=== PATIENT | female | born 1995 | race Caucasian/White ===

== ENCOUNTER → 2020-07-29 11:34 | Outpatient (CLI) | payer OTHER, SELFPAY ==
--- NOTE | ~2020-07-29 | US_ITS ---
EXAMINATION: US OB transvaginal DATE: 07/29/2020 12:04 INDICATION: Gestational dating. TECHNIQUE: Real-time transvaginal obstetric ultrasound. FINDINGS: No prior studies for comparison. The uterus measures 10 x 6.2 x 7.6 cm. There is an intrauterine gestational sac, with pole iden tified. The crown rump length measures 1.64 cm, which correlates with a estimated gestational age of 8 weeks 0 days. heart tones are identified measuring 172 bpm. The left ovary is unremarkable with follicular changes measuring 3.2 x 2.9 x 2.4 cm. IMPRESSION: 1. SL IUP with an EGA of 8 weeks, 0 days (EDC by current ultrasound of 03/10/2021). Reviewed, dictated and finalized at location B. IMPRESSION: 1. SL IUP with an EGA of 8 weeks, 0 days (EDC by current ultrasound of 03/10/20 21).
== END ==
PROVIDERS: Visit Provider Obstetrics & Gynecology
DX: Z36.87 Encounter for antenatal screening for uncertain dates (principal); Z3A.08 8 weeks gestation of pregnancy
CPT/HCPCS: 76817

== ENCOUNTER 2021-01-03 05:59 | Observation (INO) | payer OTHER, SELFPAY ==
--- NOTE | ~2021-01-03 | US_ITS ---
EXAMINATION: US abdomen limited DATE: 01/03/2021 08:22 INDICATION: Right upper quadrant pain TECHNIQUE: Multiple grayscale and Doppler ultrasound images of the abdomen were obtained. COMPARISON: None available FINDINGS: Bowel gas obscures visualization of the pancreas. The visualized portions of the pancreas a re unremarkable. The liver is normal with normal echogenicity and echotexture. No surface nodularity. Normal hepatopetal flow in the main portal vein. Stones are present in the nondistended gallbladder. There is no gallbladder wall thickening or pericholecystic fluid. The normal common bile duct measur es 6 mm. Sonographic Mckenzie sign is positive. IMPRESSION: 1. Cholelithiasis and positive sonographic Mckenzie sign without gallbladder wall thickening or pericho lecystic fluid. Findings are equivocal for acute cholecystitis. Reviewed, dictated and finalized at location B. IMPRESSION: 1. Cholelithiasis and positive sonographic Mckenzie sign without gallbladder wall thickening or pericholecystic fluid. Findings are equivocal for acute cholecys titis.
[2021-01-03 06:37] VITALS: TEMP 36.3
[2021-01-03 06:38] VITALS: BP 129/67; PULSE 73
[2021-01-03 06:46] VITALS: BMI 43.2
--- NOTE | 2021-01-03 06:48 | OBADM ---
This patient, Kelly Bar, admitted to the OB room 115 on 01/03/21 at 0559 for observation due to RUQ pain and nausea. Patient/family oriented to hospital policies and general routines including ID bracelet, bed and alarms, visiting hours, pain management, procedures, bathroom and other care routines, personal items, smoking policy, room service/diet, and visiting hours. Patient/Family are encouraged to report perceived risks to care and to ask questions if they do not understand what they are told or what they should do.
[2021-01-03 07:01] VITALS: BP 130/76; PULSE 83
[2021-01-03 07:31] VITALS: BP 123/63; PULSE 78
--- NOTE | 2021-01-03 07:41 | PC.NURSE ---
Dr. Monahan returned page and informed of pt's pain, history of elevated BP's before 1st , at end of both prior pregnancies, was never on any BP meds, pain that started this am at 0430 with nausea. Informed of reactive tracing, BP's, pt denies headache, visual disturbance and normal reflexes. Pt states she ate at the [employer] last night. Pt had a couple of sips of water around 0530 this am, but nothing before or since. Orders received.
--- NOTE | 2021-01-03 07:49 | PM.OBTRLD ---
OB - Triage/Final Diagnosis Visit Information Comments/Additional reasons for admission: I have assessed the risk for this patient, Kelly Bar, and determined that she would benefit from observation care. Evaluation Vital signs: Vital Signs - 24 hr 01/03/21 06:38 01/03/21 07:01 01/03/21 07:31 Pulse Rate 73 83 78 Blood Pressure 129/67 130/76 123/63 Final Diagnosis (1) RUQ pain: Code(s): R10.11 - Right upper quadrant pain Status: Acute Plan: The patient had sudden onset in the night of RUQ pain and nausea. No headache or visual changes. Good FM. PE: vss abdomen soft, tender RUQ to minimal palpation A/P: IUP 31 1/7 wks RUQ pain-check ultrasound, labs
[2021-01-03 08:02] VITALS: BP 121/65; PULSE 77
[2021-01-03 08:10] LABS: Basophils Percent Auto 0.1 % (0.2-1.2); Eosinophils Percent Auto 0.3 % (0-4.4); Hematocrit 35.4 % (37.0-47.0); Hemoglobin 11.7 g/dL (12.0-15.0); Immature Granulocyte Absolute 0.03 K/mm3 (0.00-0.031); Immature Granulocyte Percent A 0.3 % (0-0.5); Lymphocytes Absolute Auto 1.65 K/mm3 (0.9-3.2); Lymphocytes Percent Auto 19.2 % (18.3-44.2); Mean Corpuscular HGB Conc 33.1 g/dl (32-36); Mean Corpuscular Hemoglobin 28.9 pg (26-34); Mean Corpuscular Volume 87.4 fl (80-100); Mean Platelet Volume 10.2 fl (7.4-10.4); Monocytes Absolute Auto 0.8 K/mm3 (0.1-0.6); Neutrophils Absolute Auto 6.1 K/mm3 (1.3-6.7); Neutrophils Percent Auto 71.1 % (45.5-73.1); Platelet Count Result 218 k/mm3 (150-375); Red Blood Count 4.05 M/mm3 (4.2-5.4); Red Cell Distribution Width 13.4 % (11.5-14.5); White Blood Count 8.6 K/mm3 (4.5-10.0)
[2021-01-03 08:55] LABS: Alanine Aminotransferase 35 U/L (4-35); Albumin Level 3.7 g/dL (3.5-5.1); Alkaline Phosphatase 103 U/L (38-126); Anion Gap 6 mmol/L (8-16); Aspartate Amino Transferase 22 U/L (14-36); Bilirubin,Total 0.3 mg/dL (0.2-1.3); Blood Urea Nitrogen 7 mg/dL (7-17); Calcium 9.5 mg/dL (8.4-10.2); Carbon Dioxide 25 mmol/L (22-30); Chloride 105 mmol/L (98-107); Estimated CRCL calculation 159 ml/min; Estimated Glomerular Filt Rate > 60; Glucose 92 mg/dL (65-110); Potassium 3.6 mmol/L (3.4-5.0); Sodium 136 mmol/L (137-145)
--- NOTE | 2021-01-03 09:22 | PC.NURSE ---
Dr. Monahan returned page and informed of U/S and lab results. Orders for discharge on a low fat diet received.
== END 2021-01-03 10:15 | disposition home or self-care (01) ==
LOC: ANHLDR 01-06 09:16 → ANHOBPP 01-06 09:16
PROVIDERS: Admitting Provider Obstetrics & Gynecology Gynecology; PCP Family Medicine Sports Medicine; Visit Provider Obstetrics & Gynecology Gynecology
DX: O26.893 Other specified pregnancy related conditions, third trimester (principal); R10.11 Right upper quadrant pain; Z3A.31 31 weeks gestation of pregnancy
CPT/HCPCS: 36415; 76705; 80053; 85025; G0378; G0379

== ENCOUNTER 2021-02-06 16:18 | Outpatient (CLI) | payer OTHER, SELFPAY ==
[2021-02-06 17:06] LABS: Partial Thromboplastin Time 23.6 SECONDS (22.3-36.8)
== END 2021-02-06 16:19 | disposition home or self-care (01) ==
PROVIDERS: PCP Family Medicine Sports Medicine; Visit Provider Obstetrics & Gynecology
DX: O99.413 Diseases of the circulatory system complicating pregnancy, third trimester (principal); Z3A.00 Weeks of gestation of pregnancy not specified; Z86.718 Personal history of other venous thrombosis and embolism
CPT/HCPCS: 36415; 85730; 86850; 86900; 86901

== ENCOUNTER 2021-02-10 11:46 | Outpatient (RCR) | payer OTHER, SELFPAY ==
--- NOTE | ~2021-02-10 | US_ITS ---
EXAMINATION: US OB BPP wo non-stress DATE: 02/10/2021 13:36 INDICATION: Nonreactive nonstress test on in office examination TECHNIQUE: Real-time pelvic ultrasound was performed. The interpreting radiologist was not present fo r the study. COMPARISON: None. FINDINGS: There is a single living fetus in vertex presentation. The placenta is anterior. heart rate is 129 beats per minute (bpm). Amniotic fluid volume is subjectively normal. Biophysical profile performed by the technologist: breathing (30 sec sustained breathing in 30 minutes): 2 out of 2 movement (3 gross body movements in 30 minutes): 2 out of 2 tone (one episode of qxisrhz-nuclevssq-pyfpujf limb movement): 2 out of 2 Amniotic fluid pocket (2 cm): 2 out of 2 Total score: 8 out of 8 IMPRESSION: 1. Single living fetus in vertex presentation with heart rate of 129 bpm. 2. Biophysical profile 8 out of 8. Reviewed, dictated and finalized at location A.
[2021-02-10 12:37] VITALS: BP 127/69; PULSE 88
== END 2021-02-10 12:00 | disposition home or self-care (01) ==
LOC: ANHOBOP 11:46
PROVIDERS: PCP Family Medicine Sports Medicine; Visit Provider Obstetrics & Gynecology
DX: O26.893 Other specified pregnancy related conditions, third trimester (principal); R03.0 Elevated blood-pressure reading, without diagnosis of hypertension; Z3A.36 36 weeks gestation of pregnancy
CPT/HCPCS: 59025; 76819

== ENCOUNTER 2021-02-10 14:46 | Outpatient (CLI) | payer OTHER, SELFPAY ==
[2021-02-10 15:54] LABS: Partial Thromboplastin Time 26.2 SECONDS (22.3-36.8)
== END 2021-02-10 14:47 | disposition home or self-care (01) ==
PROVIDERS: PCP Family Medicine Sports Medicine; Visit Provider Obstetrics & Gynecology
DX: Z86.718 Personal history of other venous thrombosis and embolism (principal)
CPT/HCPCS: 36415; 59025; 76819; 85730

== ENCOUNTER 2021-02-21 11:33 | Outpatient (CLI) | payer OTHER, SELFPAY ==
[2021-02-21] VITALS (7 sets, daily range): BP systolic 102–117; BP diastolic 58–71; PULSE 72–93
[2021-02-21 12:12] LABS: Basophils Percent Auto 0.2 % (0.2-1.2); Eosinophils Absolute Auto 0.1 K/mm3 (0-0.3); Eosinophils Percent Auto 0.5 % (0-4.4); Hematocrit 35.4 % (37.0-47.0); Hemoglobin 11.8 g/dL (12.0-15.0); Immature Granulocyte Absolute 0.03 K/mm3 (0.00-0.031); Immature Granulocyte Percent A 0.3 % (0-0.5); Lymphocytes Absolute Auto 2.01 K/mm3 (0.9-3.2); Lymphocytes Percent Auto 20.2 % (18.3-44.2); Mean Corpuscular HGB Conc 33.3 g/dl (32-36); Mean Corpuscular Hemoglobin 28.5 pg (26-34); Mean Corpuscular Volume 85.5 fl (80-100); Mean Platelet Volume 10.8 fl (7.4-10.4); Monocytes Absolute Auto 0.8 K/mm3 (0.1-0.6); Monocytes Percent Auto 8.2 % (2.6-8.5); Neutrophils Percent Auto 70.6 % (45.5-73.1); Platelet Count Result 202 k/mm3 (150-375); Red Blood Count 4.14 M/mm3 (4.2-5.4); Red Cell Distribution Width 14.2 % (11.5-14.5)
[2021-02-21 12:17] LABS: Add Urine Microscopic? YES; Appearance Urine Cloudy (Clear); Bilirubin Urine Negative (Negative); Blood Urine Negative (Negative); Color Urine Yellow (Yellow); Glucose Urine UA Negative (Negative); Ketones Urine Negative (Negative); Leukocyte Esterase Ur Trace LEU/UL (NEGATIVE); Mucus Urine Rare /lpf; Nitrate Urine Negative (Negative); Protein Urine 1+ mg/dL (Negative); Specific Grav Ur 1.019 (1.001-1.035); Squamous Epithelial Cell Urine Many /hpf (Few); Urobilinogen Urine Negative mg/dL (<2.0)
[2021-02-21] MEDS: ACETAMINOPHEN 500 MG TABLET 1000 MG PO (12:22)
[2021-02-21 12:27] LABS: Alanine Aminotransferase 21 U/L (4-35); Albumin Level 3.8 g/dL (3.5-5.1); Alkaline Phosphatase 160 U/L (38-126); Anion Gap 10 mmol/L (8-16); Aspartate Amino Transferase 20 U/L (14-36); Bilirubin,Total 0.6 mg/dL (0.2-1.3); Blood Urea Nitrogen 8 mg/dL (7-17); Calcium 9.6 mg/dL (8.4-10.2); Carbon Dioxide 20 mmol/L (22-30); Chloride 104 mmol/L (98-107); Estimated Glomerular Filt Rate > 60; Glucose 113 mg/dL (65-110); Potassium 3.9 mmol/L (3.4-5.0); Sodium 134 mmol/L (137-145); Uric Acid 6.9 mg/dL (2.5-7.5)
[2021-02-21 12:28] LABS: Creatinine Urine 180.5 mg/dL; Total Protein Urine Random 12 mg/dL; Ur Ttl Prot Creatinine Ratio 0.07 mg/mg (0-0.20)
[2021-02-22 15:32] LABS: Creatinine Urine 81.6 mg/dL
[2021-02-22 16:29] LABS: Creatinine 24 Hour Urine 1.3 gm/24 (0.8-1.8); Total Volume 24 Hour Urine 1700 ml
[2021-02-22 16:30] LABS: Total Volume 24 Hour Urine 1700 ml
[2021-02-22 16:37] LABS: Total Protein Urine 24 Hr 255 mg/24hr (28-141); Total Protein Urine Random 15 mg/dL
== END 2021-02-21 13:15 | disposition home or self-care (01) ==
LOC: ANHOBOP 11:40 → ANHOBPP 11:53
PROVIDERS: PCP Family Medicine Sports Medicine; Visit Provider Obstetrics & Gynecology
DX: O13.9 Gestational [pregnancy-induced] hypertension without significant proteinuria, unspecified trimester (principal); Z3A.00 Weeks of gestation of pregnancy not specified
CPT/HCPCS: 36415; 59025; 80053; 81001; 81050; 82570; 84156; 84550; 85025; 87086; 99199; A9270

== ENCOUNTER 2021-02-24 11:58 | Outpatient (CLI) | payer OTHER, SELFPAY ==
[2021-02-24] VITALS (10 sets, daily range): BP systolic 102–123; BP diastolic 61–80; PULSE 75–98
[2021-02-24 12:37] LABS: Basophils Percent Auto 0.1 % (0.2-1.2); Eosinophils Percent Auto 0.3 % (0-4.4); Hematocrit 36.2 % (37.0-47.0); Hemoglobin 12.1 g/dL (12.0-15.0); Immature Granulocyte Absolute 0.03 K/mm3 (0.00-0.031); Immature Granulocyte Percent A 0.3 % (0-0.5); Lymphocytes Percent Auto 20.1 % (18.3-44.2); Mean Corpuscular HGB Conc 33.4 g/dl (32-36); Mean Corpuscular Hemoglobin 28.3 pg (26-34); Mean Corpuscular Volume 84.8 fl (80-100); Mean Platelet Volume 11.1 fl (7.4-10.4); Monocytes Absolute Auto 0.6 K/mm3 (0.1-0.6); Monocytes Percent Auto 6.8 % (2.6-8.5); Neutrophils Absolute Auto 6.5 K/mm3 (1.3-6.7); Neutrophils Percent Auto 72.4 % (45.5-73.1); Platelet Count Result 196 k/mm3 (150-375); Red Blood Count 4.27 M/mm3 (4.2-5.4); Red Cell Distribution Width 14.4 % (11.5-14.5)
[2021-02-24 12:49] LABS: Alanine Aminotransferase 21 U/L (4-35); Albumin Level 3.9 g/dL (3.5-5.1); Alkaline Phosphatase 172 U/L (38-126); Anion Gap 9 mmol/L (8-16); Aspartate Amino Transferase 20 U/L (14-36); Bilirubin,Total 0.6 mg/dL (0.2-1.3); Blood Urea Nitrogen 8 mg/dL (7-17); Calcium 10.2 mg/dL (8.4-10.2); Carbon Dioxide 20 mmol/L (22-30); Chloride 104 mmol/L (98-107); Estimated Glomerular Filt Rate > 60; Glucose 125 mg/dL (65-110); Potassium 3.9 mmol/L (3.4-5.0); Sodium 133 mmol/L (137-145); Uric Acid 7.5 mg/dL (2.5-7.5)
[2021-02-24 13:00] LABS: Add Urine Microscopic? YES; Appearance Urine Cloudy (Clear); Bacteria Urine Trace /hpf; Bilirubin Urine Negative (Negative); Blood Urine Negative (Negative); Color Urine Yellow (Yellow); Glucose Urine UA Negative (Negative); Ketones Urine Negative (Negative); Leukocyte Esterase Ur 1+ LEU/UL (NEGATIVE); Mucus Urine Rare /lpf; Nitrate Urine Negative (Negative); Protein Urine 1+ mg/dL (Negative); Specific Grav Ur 1.017 (1.001-1.035); Squamous Epithelial Cell Urine Many /hpf (Few); Urobilinogen Urine Negative mg/dL (<2.0)
[2021-02-24 14:01] LABS: Creatinine Urine 117.6 mg/dL; Total Protein Urine Random 14 mg/dL; Ur Ttl Prot Creatinine Ratio 0.12 mg/mg (0-0.20)
--- NOTE | 2021-02-24 14:45 | PM.OBTRLD ---
OB - Triage/Final Diagnosis Visit Information Comments/Additional reasons for admission: I have assessed the risk for this patient, Kelly Bar, and determined that she would benefit from observation care. Evaluation Laboratory results: Laboratory Tests 02/24/21 02/24/21 02/24/21 12:24 12:24 12:24 WBC 9.0 RBC 4.27 Hgb 12.1 Hct 36.2 L MCV 84.8 MCH 28.3 MCHC 33.4 RDW 14.4 Plt Count 196 MPV 11.1 H Immature Gran % (Auto) 0.3 Neut % (Auto) 72.4 Lymph % (Auto) 20.1 [place] % (Auto) 6.8 Eos % (Auto) 0.3 Baso % (Auto) 0.1 L Lymph # (Auto) 1.80 [place] # (Auto) 0.6 Eos # (Auto) 0.0 Baso # (Auto) 0.0 Abs Immat Gran (auto) 0.03 Absolute Neuts (auto) 6.5 Absolute Nucleated RBC 0.0 Nucleated RBC % 0.0 Sodium Potassium Chloride Carbon Dioxide Anion Gap BUN Creatinine Estim Creat Clear Calc Estimated GFR Glucose Uric Acid Calcium Total Bilirubin AST ALT Alkaline Phosphatase Total Protein Albumin Urine Color Yellow Urine Appearance Cloudy H Urine pH 7.0 Ur Specific [place] 1.017 Urine Protein 1+ H Urine Glucose (UA) Negative Urine Ketones Negative Ur Blood (Man) Negative Urine Nitrate Negative Urine Bilirubin Negative Urine Urobilinogen Negative Ur Leukocyte Esterase 1+ H Urine RBC 3-5 H Urine WBC 7-9 H Ur Squamous Epith Cells Many H Urine Bacteria Trace Urine Mucus Rare U Random Total Protein 14 Urine Creatinine 117.6 02/24/21 12:24 WBC RBC Hgb Hct MCV MCH MCHC RDW Plt Count MPV Immature Gran % (Auto) Neut % (Auto) Lymph % (Auto) [place] % (Auto) Eos % (Auto) Baso % (Auto) Lymph # (Auto) [place] # (Auto) Eos # (Auto) Baso # (Auto) Abs Immat Gran (auto) Absolute Neuts (auto) Absolute Nucleated RBC Nucleated RBC % Sodium 133 L Potassium 3.9 Chloride 104 Carbon Dioxide 20 L Anion Gap 9 BUN 8 Creatinine 0.70 Estim Creat Clear Calc Not Reportable Estimated GFR > 60 Glucose 125 H Uric Acid 7.5 Calcium 10.2 Total Bilirubin 0.6 AST 20 ALT 21 Alkaline Phosphatase 172 H Total Protein 7.0 Albumin 3.9 Urine Color Urine Appearance Urine pH Ur Specific [place] Urine Protein Urine Glucose (UA) Urine Ketones Ur Blood (Man) Urine Nitrate Urine Bilirubin Urine Urobilinogen Ur Leukocyte Esterase Urine RBC Urine WBC Ur Squamous Epith Cells Urine Bacteria Urine Mucus U Random Total Protein Urine Creatinine Vital signs: Vital Signs - 24 hr 02/24/21 12:31 02/24/21 12:46 02/24/21 13:01 Pulse Rate 98 80 81 Blood Pressure 110/72 120/63 114/69 02/24/21 13:16 02/24/21 13:31 02/24/21 13:46 Pulse Rate 83 82 79 Blood Pressure 123/70 116/80 114/75 02/24/21 14:01 02/24/21 14:16 02/24/21 14:31 Pulse Rate 79 75 83 Blood Pressure 115/71 105/69 113/74 Final Diagnosis (1) PIH ( induced hypertension): Code(s): O13.9 - Gestational [-induced] hypertension without significant proteinuria, unspecified trimester Status: Acute
== END 2021-02-24 14:40 | disposition home or self-care (01) ==
LOC: ANHOBOP 12:05 → ANHLDR 12:09
PROVIDERS: PCP Family Medicine Sports Medicine; Visit Provider Obstetrics & Gynecology
DX: O13.9 Gestational [pregnancy-induced] hypertension without significant proteinuria, unspecified trimester (principal); Z3A.00 Weeks of gestation of pregnancy not specified
CPT/HCPCS: 36415; 59025; 80053; 81001; 82570; 84156; 84550; 85025; 87086; 99199

== ENCOUNTER 2021-02-27 13:20 | Inpatient (IN) | payer OTHER, SELFPAY ==
[2021-02-27] VITALS (16 sets, daily range): BP systolic 114–132; BP diastolic 61–92; PULSE 75–94; TEMP 36.3–36.9; BMI 43.3
[2021-02-27 15:03] LABS: Basophils Percent Auto 0.2 % (0.2-1.2); Eosinophils Percent Auto 0.3 % (0-4.4); Hematocrit 36.6 % (37.0-47.0); Hemoglobin 12.1 g/dL (12.0-15.0); Immature Granulocyte Absolute 0.04 K/mm3 (0.00-0.031); Immature Granulocyte Percent A 0.4 % (0-0.5); Lymphocytes Percent Auto 19.7 % (18.3-44.2); Mean Corpuscular HGB Conc 33.1 g/dl (32-36); Mean Corpuscular Hemoglobin 28.2 pg (26-34); Mean Corpuscular Volume 85.3 fl (80-100); Mean Platelet Volume 11.2 fl (7.4-10.4); Monocytes Absolute Auto 1.2 K/mm3 (0.1-0.6); Neutrophils Absolute Auto 6.1 K/mm3 (1.3-6.7); Neutrophils Percent Auto 66.4 % (45.5-73.1); Platelet Count Result 195 k/mm3 (150-375); Red Blood Count 4.29 M/mm3 (4.2-5.4); Red Cell Distribution Width 14.3 % (11.5-14.5); White Blood Count 9.1 K/mm3 (4.5-10.0)
[2021-02-27] MEDS: DINOPROSTONE 10 MG VAG INSERT VAGINAL (15:55)
--- NOTE | 2021-02-27 16:37 | LDADM ---
This patient, Kelly Bar, was admitted to Labor/Delivery/Recovery 104 on 02/27/21 at 13:20. Plans for labor, pain management and were discussed with patient. Patient/family oriented to hospital policies and general routines including ID bracelet, bed and alarms, visiting hours, pain management, procedures, bathroom and other care routines, personal items, smoking policy, room service/diet and guest tray routines, infant security routines, and visiting hours. Patient/Family are encouraged to report perceived risks to care and to ask questions if they do not understand what they are told or what they should do. See OBIX for further documentation.
[2021-02-28] VITALS (88 sets, daily range): BP systolic 86–166; BP diastolic 41–105; PULSE 63–130; TEMP 36.1–36.9; O2SAT 96–100
[2021-02-28] MEDS: AMPICILLIN 2 GM/NS 100 ML 2 GM/100 ML BAG IVPB (00:03)
[2021-02-28] MEDS: LACTATED RINGERS 1,000 ML 125 ML IV CONT ×2 (00:04→20:12)
[2021-02-28] MEDS: AMPICILLIN 1 GM/NS 50 ML 1 GM/50 ML BAG IVPB ×5 (04:00→21:00)
[2021-02-28] MEDS: OXYTOCIN 30 UNITS/NS 500 ML 30 UNITS/500 ML BAG IV CONT (04:39)
[2021-02-28 05:51] LABS: Partial Thromboplastin Time 23.7 SECONDS (22.3-36.8)
--- NOTE | 2021-02-28 07:25 | WPDOBADMIT ---
Obstetrics - Admit Note Admission Note: record reviewed. No pertinent additions to the history and/or any subsequent changes in the physical findings that are not consistent with the expected course of the were found. Additions to the history and/or subsequent changes in the physical findings follow. [facility] yesterday afternoon for MIL for oligohydramnios with SHANICE 3.4. Cervadil placed and now on Pitocin. Cervix 2/50/-3 anterior. AROM? no fluid return. FHTs reactive.
[2021-02-28 07:29] LABS: Rapid Plasma Reagin Non-Reactive (NonReactive)
[2021-02-28] MEDS: fentaNYL CITRATE INJ (*CRX) 100 MCG/2 ML VIAL 50 MCG IV PUSH ×2 (13:47→17:30)
[2021-02-28] MEDS: SODIUM CHLORIDE 0.9% IV 1,000 ML 150 ML I-UTERINE (14:55)
[2021-02-28] MEDS: LABETALOL HCL 100 MG TABLET PO (15:38)
[2021-02-28] MEDS: ONDANSETRON INJ 4 MG/2 ML VIAL IV PUSH (17:31)
--- NOTE | 2021-02-28 20:17 | WPDANESEPPF ---
Anes - Initial Pre Proc Eval Procedure: labor epidural Date/Time: 02/28/21 20:17 Surgeon: Jony Zuniga MD Pre Op Diagnosis: labor pain Pre Op Diagnosis: Induction of Labor Patient Data Age: 26 Gender: F Height: 1.68 m Weight: 121.8 kg Last Vital Signs Temp 36.4 C L 02/28/21 18:42 Pulse 91 02/28/21 20:16 BP 131/72 02/28/21 20:16 Pulse Ox 98 02/28/21 20:16 Allergies Allergy/AdvReac Type Severity Reaction Status Date / Time erythromycin base Allergy Severe THROAT Verified 02/06/21 15:30 SWELLING, RASH Home Medications Medication Instructions Recorded Confirmed Type PNV cmb#95-ferrous fumarate-FA 1 tablet PO DAILY 01/03/21 02/27/21 History [] aspirin 81 mg PO HS 01/03/21 02/27/21 History ergocalciferol (vitamin D2) 50,000 unit PO 2XW 01/03/21 02/27/21 History [Vitamin D2] labetalol 100 mg PO BID 01/03/21 02/27/21 History heparin (porcine) 12,000 unit SUBCUT TID 02/21/21 02/27/21 History Laboratory Tests 02/27/21 02/28/21 14:50 05:12 APTT 23.7 SECONDS SECONDS (22.3-36.8) RPR Non-reactive (NonReactive) Patient hx anesthesia problems: none Family hx anesthesia problems: none Results Review: All pre-operative results and documents have been reviewed as part of the pre-operative evaluation. PMFSH Past Medical History Medical History (Updated 02/24/21 @ 14:46 by Jony Zuniga MD) PIH ( induced hypertension) Family History Family History (Updated 02/06/21 @ 15:32 by Vel Rucker RN) Father Hypertension Grandparent Diabetes mellitus Mother Hypertension Diabetes mellitus Sibling Asthma Grandparent Heart disease Social History Social History Smoking status: Never smoker Second hand tobacco smoke exposure: No Substance use: never Spiritual care concerns: No Anes - Eval Final PreProcedure Day of Procedure 02/28/21 20:17 Patient weight: morbidly obese ASA classification: III Anesthetic plan: proceed Anesthesia type and monitoring: regional epidural and standard monitoring Results Review: All pre-operative results and documents have been reviewed as part of the pre-operative evaluation. Informed Consent: The patient's anesthetic plan and its attendant risks and benefits were discussed with the patient/family/POA. Questions were solicited and answers provided to the satisfaction of the patient/family/POA.
--- NOTE | 2021-02-28 23:23 | WPDANESEFPP ---
Anes - Eval Final PreProcedure Day of Procedure 02/28/21 23:23 Patient weight: morbidly obese Heart: regular rate and rhythm Lungs: clear to auscultation and normal air movement Airway: Mallampati scale class II Neurological: alert and oriented Last oral intake: >/= 8 hours ASA classification: III Emergent: no Anesthetic plan: proceed Anesthesia type and monitoring: regional epidural and standard monitoring Other findings: to C/S Results Review: All pre-operative results and documents have been reviewed as part of the pre-operative evaluation. Informed Consent: The patient's anesthetic plan and its attendant risks and benefits were discussed with the patient/family/POA. Questions were solicited and answers provided to the satisfaction of the patient/family/POA.
--- NOTE | 2021-02-28 23:42 | PM.IMHP ---
H&P: HPI History of Present Illness Date/Time: 02/28/21 23:42 Chief Complaint: failure to progress; intolerance of labor Narrative: The patient is a 18-year-old 1 at 39 weeks admitted for medical induction of labor. The patient's has been complicated by chronic hypertension as well as a history deep vein thrombosis and pulmonary embolus. In addition the patient was recently diagnosed with gallstones in December of 2020. She has been followed with Maternal Medicine through [facility] with monthly ultrasounds for growth. Most recently the day of admission the patient had a low amniotic fluid with an amniotic fluid index of 3.4. Patient was admitted for Cervidil which remained for 12hours followed by Pitocin. Artificial rupture membranes revealed clear fluid. Patient had slow progress of labor throughout day. She had random periods of tracing category 2 with late decelerations that resolved with conservative measures. Most recently the patient has remained at 6 to 7 cm and with going up on Pitocin a recurrence of late decelerations that would not resolve. Pitocin was disease continued and the patient recommended to proceed with . Patient agrees to proceed. labs Rh positive rubella immune RPR negative hepatitis-B surface antigen negative HIV negative group B strep positive. Review of Systems Review of Systems: Comfortable with epidural no specific complaints PMFSH Past Medical History Medical History (Updated 02/28/21 @ 23:51 by Mary Monahan MD) Deep vein thrombosis with pulmonary embolism HTN (hypertension) Kidney stone Migraines PIH ( induced hypertension) Surgical History Surgical History (Updated 02/28/21 @ 23:48 by Mary Monahan MD) H/O arthroscopic knee surgery History of tonsillectomy and adenoidectomy Family History Family History (Updated 02/06/21 @ 15:32 by Vel Rucker RN) Father Hypertension Grandparent Diabetes mellitus Mother Hypertension Diabetes mellitus Sibling Asthma Grandparent Heart disease Social History Social History Smoking status: Never smoker Second hand tobacco smoke exposure: No Substance use: never Spiritual care concerns: No Meds Home Medications and Allergies Home Medications Medication Instructions Recorded Confirmed Type PNV cmb#95-ferrous fumarate-FA 1 tablet PO DAILY 01/03/21 02/27/21 History [] aspirin 81 mg PO HS 01/03/21 02/27/21 History ergocalciferol (vitamin D2) 50,000 unit PO 2XW 01/03/21 02/27/21 History [Vitamin D2] labetalol 100 mg PO BID 01/03/21 02/27/21 History heparin (porcine) 12,000 unit SUBCUT TID 02/21/21 02/27/21 History Allergies Allergy/AdvReac Type Severity Reaction Status Date / Time erythromycin base Allergy Severe THROAT Verified 02/06/21 15:30 SWELLING, RASH Vital Signs Vital Signs - 24 hr 02/28/21 00:06 02/28/21 03:56 02/28/21 04:43 Temperature 97 F L Pulse Rate 84 82 Blood Pressure 126/76 128/63 Pulse Oximetry 02/28/21 04:45 02/28/21 05:01 02/28/21 05:31 Temperature 97 F L Pulse Rate 74 82 Blood Pressure 124/70 125/71 Pulse Oximetry 02/28/21 06:01 02/28/21 06:31 02/28/21 07:01 Temperature Pulse Rate 82 80 84 Blood Pressure 117/70 122/73 129/82 Pulse Oximetry 02/28/21 07:09 02/28/21 07:31 02/28/21 08:31 Temperature 97.9 F Pulse Rate 71 76 Blood Pressure 121/85 133/81 Pulse Oximetry 02/28/21 09:01 02/28/21 10:01 02/28/21 10:33 Temperature 98.1 F Pulse Rate 73 95 Blood Pressure 140/72 103/65 Pulse Oximetry 02/28/21 11:00 02/28/21 11:01 02/28/21 11:31 Temperature 98 F Pulse Rate 75 79 Blood Pressure 123/74 137/86 Pulse Oximetry 02/28/21 12:01 02/28/21 12:31 02/28/21 13:00 Temperature 97.9 F Pulse Rate 71 75 Blood Pressure 131/75 133/83 Pulse Oximetry 02/28/21 13:01 02/28/21 13:46 02/28/21 14:0
[2021-02-28] MEDS: ceFAZolin 3 GM/D5W 100 ML 100 ML IVPB (23:45)
--- NOTE | 2021-02-28 23:52 | WPDHPUPDATE1 ---
History and Physical Update Update Date/Time: 02/28/21 23:52 History and Physical has been reviewed, including an updated exam of the patient. There are NO changes in the patient's condition. Risks, benefits, and alternatives have been discussed and questions answered. Patient agrees to proceed with procedure.
[2021-03-01] VITALS (48 sets, daily range): BP systolic 93–165; BP diastolic 42–129; PULSE 71–121; RESP 16–18; TEMP 36.2–37; O2SAT 97–100
--- NOTE | 2021-03-01 00:22 | P.OP_ITS ---
Procedure Note - Detailed Date of Procedure 03/01/21 Pre-op Diagnosis Induction of Labor intrauterine at 39 weeks chronic hypertension history of DVT and pulmonary embolism oligohydramnios failure to progress intolerance of labor Post-op Diagnosis same Procedure Performed primary low transverse section Surgeon Mary Monahan MD Anesthesia epidural Findings male infant in the occiput posterior position with asynclitic head; weighing 6lb 11oz with 8 and 9 Apgars;normal-appearing tubes ovaries and uterus Description of Procedure the patient was taken to the operating room and placed under epidural anesthesia. She was prepped and draped in the dorsal supine position with a leftward tilt. Once anesthesia was deemed adequate a Pfannenstiel skin incision was made in the midline and carried down to the underlying layer of fascia which was nicked in the midline. The incision is extended laterally with Carrillo scissors. [place] is a used to tent the fascia which was dissected off using sharp and blunt dissection. The rectus muscles were in the midline and the peritoneum was tented and entered with Metzenbaum was. The incision is extended with blunt traction. The Aj O retractor is placed. The vesicouterine peritoneum was tented entered with Metzenbaum sent extended laterally. The bladder flap was created digitally. The lower uterine segment was incised in a transverse fashion with the scalpel. The incision is extended with lateral traction. The infant's head was brought up into the incision and delivered while the plant attendant or assistant operator applied fundal pressure. The remainder of the inf ant was delivered and the cord was clamped and cut. The is handed to the waiting nursery nurse. The cord blood and gases were drawn and the placenta removed using manual traction. The uterus was cleared of all clots and debris. The uterine incision was closed using 0 Monocryl in a running locked fashion with same suture to imbricate. One additional hcbhyh-ry-vubcw suture was required in the midline for hemostasis. The gutters are irrigated and the incision again inspected and noted to be hemostatic. The tubes and ovaries are inspected. The retractor is removed and the fascia closed using 0 Vicryl in a running fashion. Subcutaneous tissues are irrigated and made hemostatic using Bovie cautery. The skin incision is closed using 3-0 Vicryl in a subcuticular fashion. [place] flex was placed over the incision. Sponge, needle, and instrument counts are correct per the OR staff. Patient was given Ancef prior to skin incision. Patient was returned to the recovery room in stable condition. Estimated Blood Loss 180 Urine Output 300 Drains Yes ( Calvert catheter) Packing No Pathology yes ( placenta) Complications No immediate complications Condition stable Disposition floor
--- NOTE | 2021-03-01 00:28 | PM.OBDSVD ---
DS: Admitting Diagnosis Discharge Date 02/6121 Admitting Diagnosis intrauterine at 39 weeks with oligohydramnios chronic hypertension history of deep vein thrombosis and pulmonary embolus DS: Discharge Diagnosis Discharge Diagnosis (1) Failure to progress in labor: Code(s): O62.2 - Other uterine inertia Status: Acute (2) intolerance to labor, delivered, current hospitalization: Code(s): O77.9 - Labor and delivery complicated by stress, unspecified Status: Acute (3) 39 weeks gestation of : Code(s): Z3A.39 - 39 weeks gestation of Status: Acute (4) HTN (hypertension): Code(s): I10 - Essential (primary) hypertension Status: Acute (5) Deep vein thrombosis: Code(s): I82.409 - Acute embolism and thrombosis of unspecified deep veins of unspecified lower extremity Status: Acute OB - DS: Summary OB Procedures : NST, PIH Mgmt and Ultrasound OB Procedures Intrapartum: low cervical, transverse OB Procedures: : None Peripartum Data Infant Delivery Method: Section Procedures: Procedures Operation Date: 02/28/21 23:30 <No data on this case meets the specified criteria> complications: none Status at Discharge Functional status at discharge: independent ambulation Overall status at discharge: patient is progressing back to baseline Time Spent with Patient Time attestation: Total time spent providing and/or coordinating discharge services: DS: Data Data Completed and Pending Labs on day of discharge: Labs from last 24 hours 02/28/21 02/27/21 05:12 14:50 APTT 23.7 RPR Non-reactive Discharge Plan Discharge Attending physician on discharge: Jony Zuniga Discharging Clinician: Mary Monahan Anticipated Discharge Date/Time: 03/04/21 07:30 Patient Disposition: Home, Self-Care Activity: may shower, may drive after 2 weeks and pelvic rest Diet: regular Wound Care Instructions: incision open to air Patient Instructions: Antibiotic Form Stand Alone Forms: General Discharge Information Follow-up/Referrals: Jony Zuniga MD [Physician] - 1 Week Discharge Medications: New enoxaparin [Lovenox] 40 mg/0.4 mL syringe 40 mg subcut DAILY Qty: 42 RF: 0 Continued ergocalciferol (vitamin D2) [Vitamin D2] 1,250 mcg (50,000 unit) capsule 50,000 unit PO 2XW RF: 0 labetalol 100 mg tablet 100 mg PO BID RF: 0 PNV cmb#95-ferrous fumarate-FA [] 28 mg iron- 800 mcg Tablet 1 tablet PO DAILY RF: 0 Discontinued aspirin 81 mg Tablet 81 mg PO HS RF: 0 heparin (porcine) 10,000 unit/mL solution 12,000 unit subcut TID RF: 0 Date of admission: 02/27/21 13:20 Primary Care Provider: Shahid,Larry Loya Admitting Provider: Jony Zuniga Attending physician on admission: Jony Zuniga Condition: Stable
[2021-03-01] MEDS: OXYTOCIN 30 UNITS/NS 500 ML 30 UNITS/500 ML BAG 125 UNITS IV CONT (01:51)
--- NOTE | 2021-03-01 03:02 | OBPPTRN ---
Patient transferred to post room #286 via stretcher. Support person present. Oriented to unit, room, information board, rooming in, admission packet and security measures. Patient verbalizes understanding.
[2021-03-01] MEDS: HYDROcodone/acetaminophen (*CRX) 5-325 MG TABLET 1 TAB PO ×5 (03:27→22:34)
[2021-03-01] MEDS: DEXTROSE 5%/0.45% SOD CHL 1,000 ML 125 ML IV CONT (07:10)
[2021-03-01] MEDS: MULTIVIT/MIN/PREN/FOL AC/IRON TABLET 1 TAB PO (08:30)
[2021-03-01] MEDS: DOCUSATE SODIUM 100 MG CAPSULE PO ×2 (08:31→17:08)
[2021-03-01] MEDS: IBUPROFEN 600 MG TABLET PO ×3 (08:33→22:33)
--- NOTE | 2021-03-01 08:53 | WPDANLDNPN2 ---
Anes-Prog Note L&D-Neuraxial Date/Time: 03/01/21 08:53 Neuraxial medications: epidural PF morphine Opiod-related complaints: pruritis (moderate. order entered for loratadine) Patient feedback: Patient satisfied with post-operative pain management.
--- NOTE | 2021-03-01 08:54 | WPDANLDPN2 ---
Anes-Prog Note L&D Date/Time: 03/01/21 08:54 Comfortable throughout: labor and section Neuraxial method: epidural Epidural/Spinal procedure site: clean & non-tender Neuro status: Neuro function grossly intact. Cardiovascular status: normal Respiratory status: normal Airway patency: baseline Mental status: baseline Post-Op hydration status: normal Vital Signs: Last Vital Signs Temp 98.6 F 03/01/21 03:10 Pulse 75 03/01/21 03:10 Resp 16 03/01/21 03:10 BP 107/51 L 03/01/21 03:10 Pulse Ox 99 03/01/21 03:10 Pain score (VAS): 0 I/O: Intake & Output 02/28/21 03/01/21 03/01/21 23:59 07:59 15:59 Intake Total 100 Output Total 553 Balance 100 -553 Post-procedural complaints: pruritis Patient feedback: Patient satisfied with anesthetic care.
--- NOTE | 2021-03-01 09:15 | PC.NURSE ---
Mother called out for assist with feeding. Mother reports infant is sleepy and using a nipple shield for most feedings since . Once mother was able to latch infant without shield. is able to flange both lips, he keeps tongue up to palate and sucking on tongue. Skin is intact on both nipples, slight redness noted. Discussed nipple shield use and how shield may assist with latch with keeping tongue down and maintaining latch. Reviewed nipple shield precautions and possible complications. Instructions given on application and cleaning of shield. Patient able to return demonstration on proper application of shield. Discussed the need to initiate pumping if continues to nurse with the shield. Patient verbalizes understanding. Nipple care reviewed of lanolin after feedings, warm compresses as needed. Reviewed infant feeding cues, frequencies, duration of feedings, feeding elimination flow sheet, and signs of adequate intake. Demonstrated stimulation techniques to wake for feeding. Assisted with infant to breast. Reviewed positioning/alignment in cross cradle, holding breast in ?U? hold and guided asymmetrical latch on. Reviewed rational for each. With shield in place infant was able to latch after several attempts. nursed eagerly, with steady draws for short burst and would release nipple then noted sucking his tongue with nipple under tongue. Several times infant latched repeating short bursts and releasing latch. Within a few minutes infant fell asleep at breast. stimulated to wake with to return to breast with same results. Discussed the difference of effective vs ineffective feeding. Reviewed infant is latching with good burst of suckling, he is not feeding consistently with adequate milk transfer at this time and continues to need to be supplement after . Reviewed next feeding if infant is not effectively feeding, mother should initiate pumping and Instructed mother to call out for RN assistance if she is unable to latch for feeding or she has discomfort with nursing. Instructed feeding should be initiated three hours from start of last feeding or if feeding cues are noted before. Mother voiced understanding of information shared.
[2021-03-01] MEDS: LORATADINE 10 MG TABLET PO (10:24)
[2021-03-01] MEDS: ENOXAPARIN 40 MG/0.4 ML SYRINGE SUB-Q ×2 (10:24→22:34)
--- NOTE | 2021-03-01 12:45 | PC.NURSE ---
Mother called out for assist with feeding. Mother in bedside chair with better positioning/alignment. Mother reports infant is sleepy and unable to wake. Demonstrated stimulation techniques to wake. Assisted with to breast using nipple shield. Reviewed positioning/alignment in cross cradle, holding breast in ?U? hold and guided asymmetrical latch on. Reviewed rational for each. With shield in place was able to latch after several attempts. nursed sleepily with minimal effort to suckle. Attempt for 20 minutes, switching to other breast at 15 minutes. A few bursts of of draws noted. stimulated to wake with to return to breast with same results. Discussed the difference of effective vs ineffective feeding. Reviewed infant is latching with good burst of suckling, he is not feeding consistently with adequate milk transfer at this time and may need to be supplement after . Feeding options discussed, Feeding Plan is for mother to put infant to breast each feeding for up to 15 minutes, then pace feed supplement 20 mls and pump for 10-15 minutes. Parents are comfortable with supplementation and pumping. If begins to nurse effectively with long draws and frequent swallowing noted, infant may decrease supplementation and discontinue pumping. Suggested mother have LC cigar making machine supervisor observe feeding before discontinuing supplementation. Discussed increasing supplementation as requires to satisfactions. Reviewed paced feeding and suggested to stop when infant is satisfied, as long as is having required output. With increased supplementation may not want to feed for 4 hours. Mother will continue to pump on infant feeding schedule and will increase session to 20 minutes if pumping every 4 hours. Instructed mother to call out for RN assistance if she is unable to latch for feeding or she has discomfort with nursing. Instructed feeding should be initiated three hours from start of last feeding or if feeding cues are noted before. Mother voiced understanding of information shared. Assisted FOB with paced feeding.
[2021-03-01] MEDS: LANOLIN (LANSINOH) 7.5 GM CREAM 1 APPLIC TOPICAL (12:55)
--- NOTE | 2021-03-01 13:30 | PC.NURSE ---
Breast pump provided due to ineffective feeding. Instructions given on breast pump care and usage, pumping schedule, nipple care, and collection and storage of breast milk. Encouraged [id number], breast massage and manual expression to stimulate supply. Assessed patient for correct flange size, placement and draw. Patient verbalizes and demonstrates understanding of instructions.
[2021-03-02] MEDS: IBUPROFEN 600 MG TABLET PO ×3 (05:37→17:00)
[2021-03-02] MEDS: HYDROcodone/acetaminophen (*CRX) 5-325 MG TABLET 1 TAB PO ×3 (05:37→17:00)
[2021-03-02] MEDS: SIMETHICONE 80 MG TAB.CHEW PO ×3 (05:45→21:46)
[2021-03-02 06:20] LABS: Basophils Percent Auto 0.3 % (0.2-1.2); Eosinophils Absolute Auto 0.1 K/mm3 (0-0.3); Eosinophils Percent Auto 0.6 % (0-4.4); Hematocrit 35.2 % (37.0-47.0); Hemoglobin 10.4 g/dL (12.0-15.0); Immature Granulocyte Absolute 0.04 K/mm3 (0.00-0.031); Immature Granulocyte Percent A 0.4 % (0-0.5); Lymphocytes Absolute Auto 1.34 K/mm3 (0.9-3.2); Lymphocytes Percent Auto 14.3 % (18.3-44.2); Mean Corpuscular HGB Conc 29.5 g/dl (32-36); Mean Corpuscular Hemoglobin 28.3 pg (26-34); Mean Corpuscular Volume 95.9 fl (80-100); Mean Platelet Volume 11.1 fl (7.4-10.4); Monocytes Absolute Auto 0.9 K/mm3 (0.1-0.6); Monocytes Percent Auto 9.3 % (2.6-8.5); Neutrophils Percent Auto 75.1 % (45.5-73.1); Platelet Count Result 144 k/mm3 (150-375); Red Blood Count 3.67 M/mm3 (4.2-5.4); Red Cell Distribution Width 14.7 % (11.5-14.5); White Blood Count 9.3 K/mm3 (4.5-10.0)
--- NOTE | 2021-03-02 07:43 | PM.OBPNVD ---
OB - PN: Subj Subjective Date/time seen: 03/02/21 07:43 Patient comments: no complaints and pain well controlled baby status: doing well OB - PN: Obj Data Labs CBC & Chem 7: 02/27/21 14:50 OB - PN A/P Assessment and Plan (1) HTN (hypertension): Code(s): I10 - Essential (primary) hypertension Status: Acute Assessment and Plan: BP's low so will continue to hold labetalol (2) Deep vein thrombosis: Code(s): I82.409 - Acute embolism and thrombosis of unspecified deep veins of unspecified lower extremity Status: Acute Assessment and Plan: On Lovenox 40 mg daily throughout so will continue with daily not BID Plan day: 1 Plan: routine care Time Spent With Patient Time: Total time spent is greater than 50% in coordination of care (as documented) at patient's floor/unit and/or counseling patient: Exam Narrative: inc c/d/i : Bimanual exam- vagina & uterus: other (Uterus firm, nt @U)
--- NOTE | 2021-03-02 08:15 | PC.NURSE ---
Consult with pt., mother reports she is very tired and continues to have difficulties with latching and maintaining latch. Mother uses the shield for all attempts, reporting infant will latch with little suckling noted. Parents have bottle fed a few times during the night to rest. Mother states she will bottle feed this feeding due to circumcision and she will shower. Suggested mother pump on feeding schedule of every 3-4 hours, increasing pumping to 20 minutes if every four hours. Parents have increased supplementation to 30mls to satisfy . Mother reports she is pumping without difficulties or discomfort and now pumping .5-1mls per session. Nipple care reviewed of lanolin after feedings, warm compresses as needed. Instructed mother to call out for RN assistance if she is unable to latch for feeding or she has discomfort with nursing. Instructed feeding should be initiated 3-4 hours from start of last feeding or if feeding cues are noted before. Mother voiced understanding of information shared.
[2021-03-02 08:20] VITALS: BP 119/45; PULSE 90; RESP 18; TEMP 36.4; O2SAT 99
[2021-03-02 10:25] VITALS: PULSE 90
[2021-03-02] MEDS: MULTIVIT/MIN/PREN/FOL AC/IRON TABLET 1 TAB PO (10:47)
[2021-03-02] MEDS: DOCUSATE SODIUM 100 MG CAPSULE PO ×2 (10:47→17:00)
[2021-03-02 12:00] VITALS: BP 103/59; PULSE 90; RESP 18; TEMP 36.1; O2SAT 97
[2021-03-02 17:02] VITALS: PULSE 75
--- NOTE | 2021-03-02 17:30 | PC.NURSE ---
Erythema noted approximately 1 inch above old IV site on lt. forearm. Area feels warm to the touch. Ice pack placed to area and borders of erythema marked with ink pen. Encouraged pt to notify RN if any changes are noted. Will continue to monitor.
--- NOTE | 2021-03-02 17:50 | PC.NURSE ---
1700 dose of labetalol held d/t BP of 130/67 per MD orders.
[2021-03-02 17:51] VITALS: BP 130/67; PULSE 75; RESP 18
[2021-03-02 19:15] VITALS: BP 120/61; PULSE 90; RESP 18; TEMP 36.5; O2SAT 100
[2021-03-02] MEDS: ENOXAPARIN 40 MG/0.4 ML SYRINGE SUB-Q (21:41)
[2021-03-02] MEDS: HYDROcodone/acetaminophen (*CRX) 10-325 MG TABLET 1 TAB PO (21:45)
[2021-03-03] MEDS: HYDROcodone/acetaminophen (*CRX) 10-325 MG TABLET 1 TAB PO ×4 (02:59→21:20)
--- NOTE | 2021-03-03 09:00 | PC.NURSE ---
Consult with pt., mother reports infant to nursery during the night so she could rest, mother did not pump during the night. Mother will begin regular pumping during the day after all feeding attempts. Mother states she is very tired and will bottle feed if is not eagerly latching. Mother has her pump from home. Requested mother call out next feeding to assist with pump use.
[2021-03-03 09:15] VITALS: BP 124/68; PULSE 102; RESP 20; TEMP 36.8; O2SAT 100
[2021-03-03] MEDS: DOCUSATE SODIUM 100 MG CAPSULE PO ×2 (09:29→17:10)
[2021-03-03] MEDS: IBUPROFEN 600 MG TABLET PO ×2 (09:29→17:11)
[2021-03-03] MEDS: MULTIVIT/MIN/PREN/FOL AC/IRON TABLET 1 TAB PO (09:29)
[2021-03-03 09:33] VITALS: PULSE 102
[2021-03-03 17:30] VITALS: BP 103/55; PULSE 85; RESP 18
[2021-03-03 19:34] VITALS: BP 102/59; PULSE 94; RESP 18; TEMP 36.6; O2SAT 97
[2021-03-03] MEDS: ENOXAPARIN 40 MG/0.4 ML SYRINGE SUB-Q (21:19)
[2021-03-04 08:00] VITALS: PULSE 87; RESP 16; O2SAT 97
[2021-03-04] MEDS: DOCUSATE SODIUM 100 MG CAPSULE PO (08:38)
[2021-03-04] MEDS: HYDROcodone/acetaminophen (*CRX) 5-325 MG TABLET 1 TAB PO (08:38)
[2021-03-04] MEDS: MULTIVIT/MIN/PREN/FOL AC/IRON TABLET 1 TAB PO (08:38)
[2021-03-04 08:42] VITALS: BP 113/72; PULSE 87; RESP 16; TEMP 37.1; O2SAT 97
[2021-03-04 09:00] VITALS: PULSE 87
--- NOTE | 2021-03-04 11:14 | PM.OBPNVD ---
OB - PN: Subj Subjective Date/time seen: 03/04/21 11:14 Patient comments: no complaints and pain well controlled baby status: doing well OB - PN: Obj Data Labs CBC & Chem 7: 03/02/21 05:49 OB - PN A/P Assessment and Plan (1) Deep vein thrombosis: Code(s): I82.409 - Acute embolism and thrombosis of unspecified deep veins of unspecified lower extremity Status: Acute Assessment and Plan: lovenox x 6 wks pp (2) PIH ( induced hypertension): Code(s): O13.9 - Gestational [-induced] hypertension without significant proteinuria, unspecified trimester Status: Acute Assessment and Plan: BP check 1 wk (3) intolerance to labor, delivered, current hospitalization: Code(s): O77.9 - Labor and delivery complicated by stress, unspecified Status: Acute Plan day: 3 Plan: routine care and discharge home Time Spent With Patient Time: Total time spent is greater than 50% in coordination of care (as documented) at patient's floor/unit and/or counseling patient: Exam Narrative: inc c/d/i : Bimanual exam- vagina & uterus: other (Uterus firm, nt @U)
--- NOTE | 2021-03-04 14:45 | PC.NURSE ---
Patient viewed the discharge video Mother & Baby Care, The First Two Weeks . Patient was given the opportunity and encouraged to ask questions. Patient verbalized understanding of information shared and has been given the mother/baby guide for home reference.
[2021-03-06 09:34] VITALS: BP 131/73; PULSE 81; RESP 18; TEMP 36.8; O2SAT 100
== END 2021-03-04 15:35 | disposition home or self-care (01) | DRG 788 ==
LOC: ANHLDR 03-01 00:30 → ANHOB2 03-01 13:08 → ANHLDR 03-06 13:21 → ANHOB2 03-06 13:21
PROVIDERS: Admitting Provider Obstetrics & Gynecology; PCP Family Medicine Sports Medicine; Visit Provider Obstetrics & Gynecology Gynecology
PROC: 10907ZC Drainage of Amniotic Fluid, Therapeutic from Products of Conception, Via Natural or Artificial Opening (ICD-10-PCS; CPT 59514; principal; 2021-02-28 23:30)
DX: O41.03X0 Oligohydramnios, third trimester, not applicable or unspecified (principal); Z37.0 Single live birth; Z3A.39 39 weeks gestation of pregnancy; O99.824 Streptococcus B carrier state complicating childbirth; O13.4 Gestational [pregnancy-induced] hypertension without significant proteinuria, complicating childbirth; O36.8330 Maternal care for abnormalities of the fetal heart rate or rhythm, third trimester, not applicable or unspecified; O62.2 Other uterine inertia; O99.73 Diseases of the skin and subcutaneous tissue complicating the puerperium; L29.9 Pruritus, unspecified; O99.62 Diseases of the digestive system complicating childbirth; K80.80 Other cholelithiasis without obstruction; Z86.718 Personal history of other venous thrombosis and embolism; Z86.711 Personal history of pulmonary embolism
CPT/HCPCS: 36415; 59025; 80053; 81001; 82570; 84112; 84156; 84550; 85025; 85730; 86592; 86850; 86900; 86901; 87086; 88307; 99199; A9270; J0290; J0690; J1650; J1885; J2274; J2405; J2590; J2795; J3010; J7030; J7120

== ENCOUNTER 2021-03-10 12:41 | Outpatient (CLI) | payer OTHER, SELFPAY ==
--- NOTE | ~2021-03-10 | US_ITS ---
EXAMINATION: US venous doppler [facility] DATE: 03/10/2021 13:24 INDICATION: Left lower limb pain. TECHNIQUE: Grayscale ultrasound images without and with compression and Doppler ultrasound images of the left lower extremity veins were obtained. COMPARISON: Ultrasound 03/11/2015 FINDINGS: The visualized portions of left common femoral vein, profunda (deep) femoral vein, femoral vein, popl iteal vein, peroneal veins, posterior tibial veins, and greater saphenous vein outflow are patent. IMPRESSION: 1. No deep venous thrombosis. Reviewed, dictated and finalized at location A. ING AID SPECIALIST
== END 2021-03-10 12:42 | disposition home or self-care (01) ==
LOC: ANHIMG 12:45
PROVIDERS: PCP Family Medicine Sports Medicine; Visit Provider Obstetrics & Gynecology Gynecology
DX: M79.662 Pain in left lower leg (principal)
CPT/HCPCS: 93971

== ENCOUNTER → 2021-08-05 00:19 | Outpatient (CLI) | payer OTHER, SELFPAY ==
[2021-08-05 11:17] LABS: SARS-CoV-2 RNA PCR Negative
== END ==
PROVIDERS: PCP Family Medicine Sports Medicine; Visit Provider Surgery
DX: Z01.812 Encounter for preprocedural laboratory examination (principal); Z20.822 Contact with and (suspected) exposure to COVID-19
CPT/HCPCS: C9803; U0003; U0005

== ENCOUNTER 2021-08-05 08:41 | Outpatient (CLI) | payer OTHER, SELFPAY ==
[2021-08-05 10:08] LABS: Hematocrit 38.7 % (37.0-47.0); Hemoglobin 12.3 g/dL (12.0-15.0)
[2021-08-05 10:24] LABS: Alanine Aminotransferase 18 U/L (4-35); Albumin Level 4.2 g/dL (3.5-5.1); Alkaline Phosphatase 80 U/L (38-126); Amylase 56 U/L (30-110); Aspartate Amino Transferase 28 U/L (14-36); Bilirubin,Total 1.1 mg/dL (0.2-1.3); Lipase 72 U/L (23-300)
== END 2021-08-05 08:42 | disposition home or self-care (01) ==
PROVIDERS: PCP Family Medicine Sports Medicine; Referring Provider Anesthesiology; Visit Provider Surgery
DX: Z01.818 Encounter for other preprocedural examination (principal); K80.20 Calculus of gallbladder without cholecystitis without obstruction; D64.9 Anemia, unspecified
CPT/HCPCS: 36415; 80076; 82150; 83690; 85014; 85018; 86850; 86900; 86901

== ENCOUNTER 2021-08-09 00:47 | Day surgery (SDC) | payer OTHER, SELFPAY ==
[2021-08-04 12:03] VITALS: BMI 42.9
--- NOTE | 2021-08-04 12:15 | PC.NURSE ---
Report to the Outpatient Waiting Room, entrance under the green pavilion located off [facility], at time 8:30 on date 08/09/21. OR Time: 10:30. - You and your visitor will be asked a series of questions to screen for COVID 19 for your protection. - A mask is required within the hospital. One visitor will be allowed to accompany the patient into the hospital. Patients visitor will be instructed to remain with patient at all times or leave the building. We will allow the visitor to come back to the postoperative area when patient is ready. Preoperative COVID Testing Requirements: COVID TEST 08/05 AT 8:45 No COVID Test needed if: (proof is required; if not received patient will have Rapid Test prior to entry) - Patient has received COVID Vaccine at least 14 days prior to procedure date or - Patient has positive COVID test result within last 90 days of surgery date. COVID Test needed if above criteria is not met If not COVID vaccinated a COVID test must be conducted within 72 hours of surgery and patient is asked to isolate self from time of testing until procedure. You will go to the [facility] for your COVID testing. The [facility] is located at the corner of [address] [facility]. You will only be called if COVID results are positive and your surgeon may reschedule your elective surgery date. Patients may have clear liquids (water, carbonated beverages, clear teas, apple juice) until 3 hours prior to surgery (7:30) with a maximum of 20 ounces. - No food from midnight until time of surgery Take the following medications with a SIP of water the morning of surgery: NONE Medications to discontinue per physician: VITAMINS/SUPPLEMENTS Date to take last dose: 08/05/21 Please no make-up, nail tajik, hairspray, perfume, deodorant, or body powder the day of surgery. No jewelry (including any body piercings) or valuables the day of surgery, leave them at home. Please take a shower or bath the night before, or the morning of, surgery with an antibacterial soap. Wear comfortable, loose fitting clothing. HIBICLENS SHOWER - Jewelry must be removed prior to entering the operating room. Rings and piercings that are not removed may be cut off. - The hospital will not accept responsibility for valuables. - Please leave all valuables, including medications, at home the day of surgery. If you are going home after surgery, a licensed otr driver must drive you home. - NO public transportation without another adult. - We recommend that an adult stay with you for 24 hours following discharge. - We also recommend that you do not drive, make important decision, drink alcoholic beverages, or take any drugs that were not prescribed by your health care provider for at least 24 hours after your discharge time. Follow any additional instructions given to you from your surgeon. Telephone instructions given to ANN ALEXIS and asked if any additional questions and then verbalized understanding. Patient advised to call surgeon office or pre surgery nurse liaison [phone] if any additional questions.
[2021-08-09] VITALS (8 sets, daily range): BP systolic 110–146; BP diastolic 69–88; PULSE 51–73; RESP 10–20; TEMP 36.2–37.1; O2SAT 93–100; BMI 41.8
--- NOTE | 2021-08-09 08:57 | WPDANESEPPF ---
Anes - Initial Pre Proc Eval Procedure: Operation Date: 08/09/21 10:30 Proposed Procedures p Laparoscopic Cholecystectomy, Possible Open - Jin Rodríguez DO Date/Time: 08/09/21 08:57 Surgeon: Jin Rodríguez DO Pre Op Diagnosis: symptomatic cholelithiasis Patient Data Age: 26 Gender: F Height: 1.68 m Weight: 117.7 kg Allergies Allergy/AdvReac Type Severity Reaction Status Date / Time erythromycin base Allergy Severe THROAT Verified 08/09/21 08:59 SWELLING, RASH sulfamethoxazole AdvReac Intermediate rash Verified 08/09/21 08:59 [From Bactrim] trimethoprim [From Bactrim] AdvReac Intermediate rash Verified 08/09/21 08:59 Home Medications Medication Instructions Recorded Confirmed Type ergocalciferol (vitamin D2) 50,000 unit PO 2XW 30 Days cap 03/04/21 08/04/21 Rx [Vitamin D2] escitalopram oxalate 20 mg tablet 20 mg PO HS 08/02/21 08/04/21 History vitamin B complex 1 tablet PO DAILY 08/02/21 08/04/21 History calcium carbonate 200 mg calcium 200 mg PO BID PRN 08/04/21 08/04/21 History (500 mg) chewable tablet ferrous sulfate [Iron (ferrous 325 mg PO DAILY 08/04/21 08/04/21 History sulfate)] multivitamin 1 tablet PO DAILY 08/04/21 08/04/21 History Patient hx anesthesia problems: none Family hx anesthesia problems: none Results Review: All pre-operative results and documents have been reviewed as part of the pre-operative evaluation. [facility] Past Medical History Medical History Deep vein thrombosis with pulmonary embolism Depression History of blood clots HTN (hypertension) Kidney stone Migraines PIH ( induced hypertension) Surgical History Surgical History H/O arthroscopic knee surgery H/O section History of tonsillectomy and adenoidectomy Family History Family History Father Hypertension High cholesterol Grandparent Diabetes mellitus Mother Hypertension Diabetes mellitus Cerebrovascular accident Sibling Asthma Grandparent Heart disease Social History Social History Smoking status: Never smoker Second hand tobacco smoke exposure: No Alcohol intake: current Alcohol use details: Rarely Substance use: never Substance use type: does not use Living arrangements: with family 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 Gender identity (if verbalized by the patient): Female Spiritual care concerns: No Anes - Eval Final PreProcedure Day of Procedure 08/09/21 08:57 Patient weight: morbidly obese Heart: regular rate and rhythm Lungs: clear to auscultation and normal air movement Airway: Mallampati scale class II Neurological: alert and oriented Last oral intake: >/= 8 hours ASA classification: III Emergent: no Anesthetic plan: proceed Anesthesia type and monitoring: general ETT and standard monitoring Results Review: All pre-operative results and documents have been reviewed as part of the pre-operative evaluation. Informed Consent: The patient's anesthetic plan and its attendant risks and benefits were discussed with the patient/family/POA. Questions were solicited and answers provided to the satisfaction of the patient/family/POA.
[2021-08-09] MEDS: HEPARIN SODIUM 5,000 UNITS/ML VIAL 5000 UNITS SUB-Q (09:12)
[2021-08-09] MEDS: LACTATED RINGERS 1,000 ML 30 ML IV CONT ×2 (09:26→11:19)
[2021-08-09] MEDS: ACETAMINOPHEN 500 MG TABLET 1000 MG PO (09:26)
--- NOTE | 2021-08-09 09:57 | WPDHPUPDATE1 ---
History and Physical Update Update Date/Time: 08/09/21 09:57 History and Physical has been reviewed, including an updated exam of the patient. There are NO changes in the patient's condition. Risks, benefits, and alternatives have been discussed and questions answered. Patient agrees to proceed with procedure.
[2021-08-09] MEDS: ceFAZolin 2 GM/D5W 50 ML 2 GM/50 ML BAG IVPB (10:20)
--- NOTE | 2021-08-09 10:57 | SUR.PREOP ---
LATE NOTE, 1005; SPOKE TO DR MILLER, NOTIFIED OF HEPARIN GIVEN PER ORDER. HE SAID TO HOLD TORADOL.
--- NOTE | 2021-08-09 11:06 | W.PM.PROC2 ---
Procedure Note - Detailed Date of Procedure 08/09/21 Pre-op Diagnosis symptomatic cholelithiasis Post-op Diagnosis Same Procedure Performed Laparoscopic Cholecystectomy Surgeon Jin Rodríguez, DO Anesthesia General and Local (0.5% bupivacaine) Indications This is a 26-year-old woman who presented with right upper quadrant pain intermittently over the past year. She 1st started experiencing some symptoms well she was about 7 months . An ultrasound was done at that time which showed evidence of cholelithiasis. She delivered her baby and was doing well for appeared of time, but more recently she has noticed increasing symptoms. Discussions were made with the patient about treatment options and decision was made to proceed with laparoscopic cholecystectomy, possible open. The patient does have a history of pulmonary embolus. This was initially noted while she was on control pills. She is no longer on control pills but discussions were made with the patient about risks of recurrent blood clot and decision was made to give her 5000 units of heparin preop and continue Xarelto or other form of anticoagulation for 12 days postop. Findings Laparoscopic cholecystectomy was performed. The gallbladder did have slight dilation, but no other signs of inflammation or infection were noted. There were a couple small gallstones noted within the gallbladder. The cystic duct appeared normal in size. The gallbladder was removed and sent to the lab for pathology. Description of Procedure Procedure as well as risks, benefits, and alternatives were discussed with patient. Written consent was obtained and placed in chart prior to procedure. The patient was brought back to surgical suite. Patient was placed in supine position on operating table. Time-out was done to confirm patient and procedure. Patient was then intubated by the anesthesia department. Abdomen was prepped and draped in sterile fashion using chlorhexidine prep. 0.5% bupivacaine with epinephrine was infiltrated at each site of incision. A 5 millimeter incision was made near the umbilicus, and a 5 millimeter Optiview trocar was advanced through the abdominal layers under direct visualization. Once inside the abdominal cavity, carbon dioxide was insufflated to create a pneumoperitoneum. The camera was inserted and the abdomen was inspected. No immediate abnormalities were identified. The patient was placed in reverse Trendelenburg position and rotated slightly to the left. An 11 millimeter incision was made in the subxiphoid region, and an 11 millimeter trocar was inserted under direct visualization. Two 5 millimeter incisions were made in the right upper quadrant, and two 5 millimeter trocars were inserted under direct visualization. The gallbladder was identified and grasped at the fundus and retracted superiorly. It was then grasped at the infundibulum retracted laterally. Careful dissection around the neck of the gallbladder was performed using blunt dissection with a [place] grasper and hook electrocautery. The cystic duct was identified, and a window was created behind it. The cystic artery was also identified and a window was created behind it. The critical view of safety was identified, visualizing the cystic duct running directly into the neck of the gallbladder, and the cystic artery running directly into the wall of the gallbladder. A 5 millimeter clip dry cans operator was then used to place 2 clips proximally and 1 clip distally on both the cystic duct and cystic artery. They were then both transected using endoscopic scissors. Once safely away from the hunter hepatitis, the gallbladder was dissected free from the liver bed using hook electrocautery. Hemostasis was achieved along the way. The gallbladder was removed completely and then removed through the subxiphoid port. The liver bed was then inspected. Hemostasis appeared adequate, and our clips appeared secure. The area wa
[2021-08-09] MEDS: fentaNYL CITRATE INJ (*CRX) 100 MCG/2 ML VIAL 25 MCG IV PUSH ×4 (11:30→11:55)
[2021-08-09] MEDS: oxyCODONE HCL (*CRX) 5 MG TAB IR PO (12:20)
== END 2021-08-09 13:21 | disposition home or self-care (01) ==
PROVIDERS: PCP Family Medicine Sports Medicine; Visit Provider Surgery
PROC: 0FT44ZZ Resection of Gallbladder, Percutaneous Endoscopic Approach (ICD-10-PCS; CPT 47562; principal; 2021-08-09 10:30)
DX: K80.10 Calculus of gallbladder with chronic cholecystitis without obstruction (principal); I10 Essential (primary) hypertension; F32.9 Major depressive disorder, single episode, unspecified; Z86.711 Personal history of pulmonary embolism; Z86.718 Personal history of other venous thrombosis and embolism; E66.01 Morbid (severe) obesity due to excess calories; Z68.41 Body mass index [BMI] 40.0-44.9, adult
CPT/HCPCS: 47562; 36415; 80076; 82150; 83690; 85014; 85018; 86850; 86900; 86901; 88304; A9270; C9803; J0690; J1100; J1644; J2250; J2405; J2704; J2710; J3010; J7030; J7120; U0003; U0005

== ENCOUNTER 2021-10-20 21:37 | Emergency (ER) | payer OTHER, SELFPAY ==
--- NOTE | ~2021-10-20 | CT_ITS ---
EXAMINATION: CT abdomen pelvis w con INDICATION: Right lower quadrant pain TECHNIQUE: Computed tomographic images of the abdomen and pelvis were obtained after the administrati on of 100 cc of Omnipaque 300 intravenous contrast. The dose-length product (DLP) was 1572.82 mGy-cm. Automated exposure control and iterative reconstruction technique were employed. COMPARISON: None available FINDINGS: Minimal dependent atelectasis is present in the lung bases. The heart size is normal. The g allbladder is surgically absent. The liver, spleen, pancreas, and adrenal glands are normal. The kidn eys are unremarkable. No pathologically enlarged abdominal or pelvic lymph nodes are identified. Ther e is no free intraperitoneal gas or evidence of bowel obstruction. A moderate volume of colonic stool is present. The appendix is normal. IMPRESSION: 1. No CT correlate for the patient's symptoms. Reviewed, dictated and finalized at location A.
[2021-10-20 21:40] VITALS: BP 132/74; PULSE 71; RESP 16; TEMP 36.4; O2SAT 100
--- NOTE | 2021-10-20 22:01 | ED.ABDPAIN ---
HPI - Abdominal Pain General Chief Complaint: Abdominal Pain Stated Complaint: abd pain Time Seen by Provider: 10/20/21 21:44 History of Present Illness HPI narrative: The patient is a 26-year-old female with a history of cholecystectomy presenting to the emergency department for evaluation of right lower quadrant pain. Patient reports acute onset right lower quadrant pain which is sharp, severe in nature with radiation to the right flank that began approximately 10 hours ago. Patient denies any recent fall or injury. She reports abdominal fullness and bloating sensation. She denies any vaginal discharge or bleeding. She denies fever, chills, she reports nausea without vomiting. She reports some loose stools today without blood or mucus present in them. She denies dysuria or hematuria. She reports history of nephrolithiasis. She had a cholecystectomy in July. Denies recent food indiscretions. Related Data Home Medications Medication Instructions Recorded Confirmed escitalopram oxalate 20 mg tablet 20 mg PO HS 08/02/21 09/01/21 (Lexapro) vitamin B complex (B 1 tablet PO DAILY 08/02/21 09/01/21 Complex-Vitamin B12 tablet) calcium carbonate 200 mg calcium 200 mg PO BID PRN Heartburn 08/04/21 09/01/21 (500 mg) chewable tablet (Tums) ferrous sulfate 325 mg (65 mg 325 mg PO DAILY 08/04/21 09/01/21 iron) tablet (Iron (ferrous sulfate)) multivitamin 1 tablet PO DAILY 08/04/21 09/01/21 Allergies Allergy/AdvReac Type Severity Reaction Status Date / Time erythromycin base Allergy Severe THROAT Verified 10/20/21 21:47 SWELLING, RASH sulfamethoxazole AdvReac Intermediate rash Verified 10/20/21 21:47 [From Bactrim] trimethoprim [From Bactrim] AdvReac Intermediate rash Verified 10/20/21 21:47 Review of Systems Review of Systems: CONSTITUTIONAL: Denies fever, chills, or sweats. EYES: Denies visual changes, redness, or discharge. ENT: Denies rhinorrhea, congestion, sore throat, or otalgia. CARDIOVASCULAR: Denies chest pain, palpitations, or edema. RESPIRATORY: Denies cough or dyspnea. GASTROINTESTINAL: Reports right lower quadrant abdominal pain, nausea, diarrhea GENITOURINARY: Denies dysuria or hematuria. SKIN: Denies rash or itching. MUSCULOSKELETAL: Denies back pain, joint pain, or myalgia. NEUROLOGIC: Denies headache, numbness, or weakness. [facility] Past Medical History Medical History Deep vein thrombosis with pulmonary embolism Depression History of blood clots HTN (hypertension) Kidney stone Migraines PIH ( induced hypertension) Surgical History Surgical History H/O arthroscopic knee surgery H/O section History of tonsillectomy and adenoidectomy Hx laparoscopic cholecystectomy 08/09/21 Family History Family History Father Hypertension High cholesterol Grandparent Diabetes mellitus Mother Hypertension Diabetes mellitus Cerebrovascular accident Sibling Asthma Grandparent Heart disease Social History Social History Smoking status: Never smoker Second hand tobacco smoke exposure: No Alcohol intake: current Alcohol use details: Rarely Substance use: never Substance use type: does not use 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 EYES: PERRLA and EOMI. ENT: Nares clear, no rhinorrhea or epistaxis. Mucous membranes moist. NECK: Supple. CHEST: No respiratory distress, breathing even and non labored HEART: Regular rate, sinus rhythm ABDOMEN:Non distended, right lower quadrant abdominal tenderness on exam, positive right flank tende
[2021-10-20] MEDS: ONDANSETRON INJ 4 MG/2 ML VIAL IV PUSH (22:23)
[2021-10-20] MEDS: SODIUM CHLORIDE 0.9% IV 1,000 ML 999 ML IV CONT (22:23)
[2021-10-20] MEDS: MORPHINE SULFATE (*CRX) 4 MG/ML INJ IV PUSH (22:25)
[2021-10-20 22:37] LABS: Basophils Percent Auto 0.4 % (0.2-1.2); Eosinophils Absolute Auto 0.1 K/mm3 (0-0.3); Eosinophils Percent Auto 1.5 % (0-4.4); Hematocrit 35.7 % (37.0-47.0); Hemoglobin 11.4 g/dL (12.0-15.0); Immature Granulocyte Absolute 0.03 K/mm3 (0.00-0.031); Immature Granulocyte Percent A 0.4 % (0-0.5); Lymphocytes Absolute Auto 2.75 K/mm3 (0.9-3.2); Lymphocytes Percent Auto 33.3 % (18.3-44.2); Mean Corpuscular HGB Conc 31.9 g/dl (32-36); Mean Corpuscular Hemoglobin 26.8 pg (26-34); Monocytes Absolute Auto 0.6 K/mm3 (0.1-0.6); Monocytes Percent Auto 7.5 % (2.6-8.5); Neutrophils Absolute Auto 4.7 K/mm3 (1.3-6.7); Neutrophils Percent Auto 56.9 % (45.5-73.1); Platelet Count Result 253 k/mm3 (150-375); Red Blood Count 4.25 M/mm3 (4.2-5.4); Red Cell Distribution Width 14.4 % (11.5-14.5); White Blood Count 8.3 K/mm3 (4.5-10.0)
[2021-10-20 22:39] LABS: Appearance Urine Clear (Clear); Bilirubin Urine Negative (Negative); Blood Urine Negative (Negative); Color Urine Yellow (Yellow); Glucose Urine UA Negative (Negative); Ketones Urine Negative (Negative); Leukocyte Esterase Ur Negative LEU/UL (Negative); Nitrate Urine Negative (Negative); Protein Urine Negative (Negative); Specific Grav Ur >= 1.030 (1.001-1.035); Urobilinogen Urine 0.2 mg/dL (<2.0); pH Urine 5.5 (5.0-9.0)
[2021-10-20 22:41] LABS: Add Urine Microscopic? NO
[2021-10-20 23:07] LABS: Alanine Aminotransferase 17 U/L (6-35); Albumin Level 3.8 g/dL (3.5-5.1); Alkaline Phosphatase 70 U/L (38-126); Anion Gap 3 mmol/L (8-16); Aspartate Amino Transferase 25 U/L (14-36); Bilirubin,Total 0.1 mg/dL (0.2-1.3); Blood Urea Nitrogen 11 mg/dL (7-17); Calcium 8.4 mg/dL (8.4-10.2); Carbon Dioxide 28 mmol/L (22-30); Chloride 107 mmol/L (98-107); Estimated CRCL calculation 155 ml/min; Estimated Glomerular Filt Rate > 60; Glucose 100 mg/dL (65-110); Lipase 139 U/L (23-300); Sodium 138 mmol/L (137-145)
== END 2021-10-21 00:32 | disposition home or self-care (01) ==
PROVIDERS: Emergency Provider Emergency Medicine; PCP Family Medicine Sports Medicine
DX: R10.31 Right lower quadrant pain (principal); I88.0 Nonspecific mesenteric lymphadenitis; I10 Essential (primary) hypertension; F32.A Depression, unspecified; Z86.718 Personal history of other venous thrombosis and embolism; Z86.711 Personal history of pulmonary embolism; Z87.442 Personal history of urinary calculi
CPT/HCPCS: 36415; 74177; 80053; 81003; 81025; 83690; 85025; 96365; 96375; 99284; J0131; J2270; J2405; J7030; Q9967

== ENCOUNTER 2022-07-16 18:25 | Emergency (ER) | payer BC, SELFPAY ==
--- NOTE | ~2022-07-16 | CT_ITS ---
CT of the Abdomen and Pelvis: Indication: Abdominal pain Technique: 2.5 mm axial scans were obtained through the abdomen and pelvis following intravenous adm inistration of 100 cc of Omnipaque 350. Dose reduction technique was used on this scan by utilizing a utomated exposure control and iterative reconstruction technique. The dose-length product (DLP) was 1 552.04 mGy-cm. COMPARISON: 10/21/2021 Findings: Scans through the lung bases are unremarkable. Diffuse fatty infiltration of the liver noted. Cholecystectomy clips are present. The spleen, pancrea s, adrenals and right kidney are within normal limits. 2 mm nonobstructing left renal stone noted. No evidence of aortic aneurysm. No lymphadenopathy. No bowel obstruction or bowel wall thickening. There is no evidence to suggest acute appendicitis. Sh otty right lower quadrant lymph nodes are present. Images through the pelvis were performed. Urinary bladder unremarkable. No adnexal mass seen. No asci marlene. Impression: Shotty right lower quadrant lymph nodes could reflect mesenteric adenitis. 2 mm nonobstructing left renal stone. Diffuse fatty infiltration of liver. Reviewed, dictated and finalized at location . Impression: Shotty right lower quadrant lymph nodes could reflect mesenteric adenitis. 2 mm nonobstructing left renal stone. Diffuse fatty infiltration of liver.
[2022-07-16 18:30] VITALS: BP 139/80; PULSE 94; RESP 16; TEMP 36.9; O2SAT 100
[2022-07-16 18:42] LABS: Basophils Percent Auto 0.3 % (0.2-1.2); Eosinophils Absolute Auto 0.1 K/mm3 (0-0.3); Eosinophils Percent Auto 0.8 % (0-4.4); Hematocrit 40.6 % (37.0-47.0); Hemoglobin 13.2 g/dL (12.0-15.0); Immature Granulocyte Absolute 0.01 K/mm3 (0.00-0.031); Immature Granulocyte Percent A 0.1 % (0-0.5); Mean Corpuscular HGB Conc 32.5 g/dl (32-36); Mean Corpuscular Volume 83.2 fl (80-100); Mean Platelet Volume 9.9 fl (7.4-10.4); Monocytes Absolute Auto 0.3 K/mm3 (0.1-0.6); Monocytes Percent Auto 4.5 % (2.6-8.5); Neutrophils Absolute Auto 4.6 K/mm3 (1.3-6.7); Neutrophils Percent Auto 61.3 % (45.5-73.1); Platelet Count Result 308 k/mm3 (150-375); Red Blood Count 4.88 M/mm3 (4.2-5.4); Red Cell Distribution Width 13.7 % (11.5-14.5); White Blood Count 7.6 K/mm3 (4.5-10.0)
[2022-07-16 18:51] LABS: Alanine Aminotransferase 30 U/L (6-35); Albumin Level 4.2 g/dL (3.5-5.1); Alkaline Phosphatase 82 U/L (38-126); Anion Gap 5 mmol/L (8-16); Aspartate Amino Transferase 30 U/L (14-36); Bilirubin,Total 0.6 mg/dL (0.2-1.3); Blood Urea Nitrogen 12 mg/dL (7-17); Calcium 9.5 mg/dL (8.4-10.2); Carbon Dioxide 31 mmol/L (22-30); Chloride 103 mmol/L (98-107); Estimated CRCL calculation 128 ml/min; Estimated Glomerular Filt Rate > 60; Glucose 117 mg/dL (65-110); Lipase 167 U/L (23-300); Potassium 3.8 mmol/L (3.4-5.0); Sodium 139 mmol/L (137-145)
[2022-07-16 19:17] LABS: Appearance Urine Cloudy (Clear); Bacteria Urine 1+ /hpf; Bilirubin Urine Negative (Negative); Blood Urine Negative (Negative); Color Urine Yellow (Yellow); Glucose Urine UA Negative (Negative); Ketones Urine Negative (Negative); Leukocyte Esterase Ur 1+ LEU/UL (Negative); Nitrate Urine Negative (Negative); Non Pathogenic Casts 0-2; Protein Urine Negative (Negative); Specific Grav Ur 1.015 (1.001-1.035); Squamous Epithelial Cell Urine Moderate /hpf (Few); Urobilinogen Urine 0.2 mg/dL (<2.0)
[2022-07-16 19:50] LABS: Add Urine Microscopic? YES
[2022-07-16 22:16] VITALS: BP 142/75; PULSE 66; RESP 18; TEMP 36.7; O2SAT 100
--- NOTE | 2022-07-17 00:35 | ED.ABDPAIN ---
HPI - Abdominal Pain General Chief Complaint: Abdominal Pain <ELEANOR Funes Last Filed: 07/17/22 04:44> Stated Complaint: abd pain <ELEANOR Funes Last Filed: 07/17/22 04:44> Time Seen by Provider: 07/17/22 00:10 <ELEANOR Funes Last Filed: 07/17/22 04:44> Source: patient <ELEANOR Funes Last Filed: 07/17/22 04:44> Mode of arrival: ambulatory <ELEANOR Funes Last Filed: 07/17/22 04:44> Limitations: no limitations <ELEANOR Funes Last Filed: 07/17/22 04:44> History of Present Illness HPI narrative: Patient is a 27 y/o female who presents to the ED with c/o lower abdominal pain. Patient reports having pain in her midline lower abdomen since Saturday. She states the pain has been a constant dull aching with intermittent sharp pains. She has been taking ibuprofen and using a heating pad without much relief. She also reports having nausea, diarrhea on Saturday, and urinary frequency/urgency. Denies any documented fever, vomiting, constipation, rectal bleeding, melena, back pain, dysuria, hematuria. Patient reports a Hx of kidney stones but states her current pain is not as severe. <ELEANOR Funes Last Filed: 07/17/22 04:44> Related Data Home Medications: Home Medications Medication Instructions Recorded Confirmed escitalopram oxalate 20 mg tablet 20 mg PO HS 08/02/21 09/01/21 (Lexapro) vitamin B complex (B 1 tablet PO DAILY 08/02/21 09/01/21 Complex-Vitamin B12 tablet) calcium carbonate 200 mg calcium 200 mg PO BID PRN Heartburn 08/04/21 09/01/21 (500 mg) chewable tablet (Tums) ferrous sulfate 325 mg (65 mg 325 mg PO DAILY 08/04/21 09/01/21 iron) tablet (Iron (ferrous sulfate)) multivitamin 1 tablet PO DAILY 08/04/21 09/01/21 <Luz Marina Welch PA-C - Last Filed: 07/17/22 04:44> Allergies/Adverse Reactions: Allergies Allergy/AdvReac Type Severity Reaction Status Date / Time erythromycin base Allergy Severe THROAT Verified 10/20/21 21:47 SWELLING, RASH sulfamethoxazole AdvReac Intermediate rash Verified 10/20/21 21:47 [From Bactrim] trimethoprim [From Bactrim] AdvReac Intermediate rash Verified 10/20/21 21:47 <Luz Marina Welch PA-C - Last Filed: 07/17/22 04:44> Review of Systems Review of Systems: CONSTITUTIONAL: Denies fever, chills, or sweats. CARDIOVASCULAR: Denies chest pain. RESPIRATORY: Denies dyspnea. GASTROINTESTINAL: See HPI. GENITOURINARY: See HPI. SKIN: Denies rash or itching. MUSCULOSKELETAL: Denies back pain, joint pain, or myalgia. NEUROLOGIC: Denies headache, numbness, or weakness. <Luz Marina Welch PA-C - Last Filed: 07/17/22 04:44> All systems reviewed & are unremarkable except as noted in HPI and below <Luz Marina Welch PA-C - Last Filed: 07/17/22 04:44> [facility] Past Medical History Medical History: Medical History Deep vein thrombosis with pulmonary embolism Depression History of blood clots HTN (hypertension) Kidney stone Migraines PIH ( induced hypertension) <Luz Marina Welch PA-C - Last Filed: 07/17/22 04:44> Surgical History Surgical History: Surgical History H/O arthroscopic knee surgery H/O section History of tonsillectomy and adenoidectomy Hx laparoscopic cholecystectomy 08/09/21 <Luz Marina Welch PA-C - Last Filed: 07/17/22 04:44> Family History Family History: Family History Father Hypertension High cholesterol Grandparent Diabetes mellitus Mother Hypertension Diabetes mellitus Cerebrovascular accident Sibling Asthma Grandparent Heart disease <Luz Marina Welch PA-C - Last Filed: 07/17/22 04:44> Social History Social History: S
[2022-07-17] MEDS: ONDANSETRON INJ 4 MG/2 ML VIAL IV PUSH (00:59)
[2022-07-17] MEDS: SODIUM CHLORIDE 0.9% IV 1,000 ML 999 ML IV CONT (00:59)
[2022-07-17 01:07] VITALS: BP 114/62; PULSE 67; RESP 16; O2SAT 100
[2022-07-17 03:55] VITALS: BP 125/78; PULSE 54; RESP 16; O2SAT 100
[2022-07-17] MEDS: CEPHALEXIN 500 MG CAPSULE PO (04:55)
== END 2022-07-17 06:09 | disposition home or self-care (01) ==
PROVIDERS: Emergency Medicine; Emergency Provider Physician Assistant; PCP Internal Medicine
DX: N30.01 Acute cystitis with hematuria (principal); R10.30 Lower abdominal pain, unspecified; F32.9 Major depressive disorder, single episode, unspecified; I10 Essential (primary) hypertension; Z87.442 Personal history of urinary calculi
CPT/HCPCS: 36415; 74177; 80053; 81001; 83690; 85025; 87086; 96365; 96375; 99284; A9270; J0131; J2405; J7030; Q9967

== ENCOUNTER 2023-07-13 10:01 | Emergency (ER) | payer OTHER, SELFPAY ==
--- NOTE | ~2023-07-13 | CT_ITS ---
EXAMINATION: CTA chest PE protocol DATE: 07/13/2023 11:25 INDICATION: Chest pain TECHNIQUE: Computed tomography (CT) pulmonary angiogram of the chest was performed with 100 mL Omnipa que-350 intravenous contrast. Additional 3D reconstructions utilizing coronal maximum intensity proje ction (MIP) were performed. Automated exposure control and iterative reconstruction technique were em ployed. The dose-length product was 945.47 mGy-cm. COMPARISON: None FINDINGS: Prior pulmonary emboli in the right middle and lower lobes have resolved. No pulmonary emboli identif ied in the current study. There is mosaic attenuation in the dependent lungs likely related to partia lly expiratory phase of imaging with subsegmental regions of more lucent air trapping. No pneumonia, pulmonary edema or pleural effusion. Heart size is normal. No pericardial effusion. Thoracic aorta is normal in caliber with no dissection. No pathologically enlarged thoracic lymphadenopathy. Diffuse h epatic steatosis. Cholecystectomy clips at gallbladder fossa. Mild thoracic spondylosis. IMPRESSION: 1. No pulmonary embolism. 2. Mosaic attenuation lungs with subsegmental or lucent regions of air trapping which can be seen wit h small airway disease. 3. Diffuse hepatic steatosis. Reviewed, dictated and finalized at location A. IMPRESSION: 1. No pulmonary embolism. 2. Mosaic attenuation lungs with subsegmental or lucent regions of air trapping which can be seen with small airway disease. 3. Diffuse hepatic steatosis.
--- NOTE | ~2023-07-13 | XR_ITS ---
EXAMINATION: XR chest 2V DATE: 07/13/2023 10:29 INDICATION: Shortness of breath. Chest pressure. TECHNIQUE: PA and lateral views of the chest were obtained. COMPARISON: Chest CT dated 03/12/2015 FINDINGS: The lungs are clear with no focal airspace opacities, pulmonary edema, pleural effusion or pneumothor ax. The cardiomediastinal silhouette is normal. Mild thoracic spondylosis. Cholecystectomy clips in r ight upper quadrant. IMPRESSION: 1. No acute cardiopulmonary disease. Reviewed, dictated and finalized at location A.
--- NOTE | 2023-07-13 10:03 | ECG_ITS ---
Measurements Intervals [place] Rate: 87 P: 27 [place]: 153 QRS: -19 QRSD: 86 T: 19 QT: 384 QTc: 463 Interpretive Statements SINUS RHYTHM BASELINE ARTIFACT- I, II, III, AVR, AVL NORMAL ECG NO PREVIOUS ECG AVAILABLE FOR COMPARISON Electronically Signed On 07-13-2023 17:46:29 CDT by Tutu Guerra D.O.
[2023-07-13 10:10] VITALS: BP 135/72; BP 135/77; PULSE 77; PULSE 89; PULSE 94; RESP 20; TEMP 36.6; O2SAT 100; O2SAT 77
--- NOTE | 2023-07-13 10:29 | ED.CHESTPAIN ---
HPI - Chest Pain General Chief Complaint: Chest Pain Stated Complaint: sob, cp Time Seen by Provider: 07/13/23 10:09 History of Present Illness HPI narrative: Patient is a 28-year-old female who presents ER with central chest pain. Pressure. Began at 5:00 a.m.. No radiation. Feels like it is slightly worse with standing up and walking. No runny nose or sore throat or productive cough. Had a metallic taste in her mouth. Reports that she has history of DVT / PE that was related to a broken ankle in being on control. She is not currently on control. Related Data Home Medications Medication Instructions Recorded Confirmed escitalopram oxalate 20 mg tablet 20 mg PO HS 08/02/21 09/01/21 (Lexapro) vitamin B complex (B 1 tablet PO DAILY 08/02/21 09/01/21 Complex-Vitamin B12 tablet) calcium carbonate 200 mg calcium 200 mg PO BID PRN Heartburn 08/04/21 09/01/21 (500 mg) chewable tablet (Tums) ferrous sulfate 325 mg (65 mg 325 mg PO DAILY 08/04/21 09/01/21 iron) tablet (Iron (ferrous sulfate)) multivitamin 1 tablet PO DAILY 08/04/21 09/01/21 Allergies Allergy/AdvReac Type Severity Reaction Status Date / Time erythromycin base Allergy Severe THROAT Verified 10/20/21 21:47 SWELLING, RASH sulfamethoxazole AdvReac Intermediate rash Verified 10/20/21 21:47 [From Bactrim] trimethoprim [From Bactrim] AdvReac Intermediate rash Verified 10/20/21 21:47 Review of Systems Review of Systems: All systems reviewed & are unremarkable except as noted in HPI and below Constitutional: Constitutional: Reports no additional constitutional complaints ENT: Reports system reviewed and no additional complaints, except as documented Cardiovascular: Cardiovascular: Reports chest pain, Denies rapid heart rate and Denies radiating jaw, neck or arm pain Respiratory: Respiratory: Denies chest congestion, Denies cough, Reports dyspnea and Denies wheezing Gastrointestinal: Gastrointestinal: Reports no additional gastrointestinal complaints Musculoskeletal: Musculoskeletal: Reports no additional musculoskeletal complaints [facility], [facility] Past Medical History Medical History Deep vein thrombosis with pulmonary embolism Depression History of blood clots HTN (hypertension) Kidney stone Migraines PIH ( induced hypertension) Surgical History Surgical History H/O arthroscopic knee surgery H/O section History of tonsillectomy and adenoidectomy Hx laparoscopic cholecystectomy 08/09/21 Family History Family History Father Hypertension High cholesterol Grandparent Diabetes mellitus Mother Hypertension Diabetes mellitus Cerebrovascular accident Sibling Asthma Grandparent Heart disease Social History Social History Smoking status: Never smoker Second hand tobacco smoke exposure: No Alcohol intake: current Alcohol use details: 1/MONTH Substance use: never Substance use type: does not use Living arrangements: with family Occupation/Education: occupation 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 HEAD: Normocephalic, atraumatic. ENT: Mucous membranes moist. Normal-appearing posterior oropharynx. NECK: Supple. CHEST: Clear to auscultation. No respiratory distress. HEART: Regular rate and rhythm. Normal peripheral pulses. ABDOMEN: Soft, nontender, nondistended. EXTREMITIES: Normal range of motion. No edema. SKIN: Warm, dry, no rash. NEURO:Alert and oriented x3. PSYCH: Normal mood and affect. Course Course Emergency Course:
[2023-07-13] MEDS: BELLADONNA ALK/PHENOB ELIX 10 ML, MAG HYDROX/ALUMINUM HYD/SIMETH 30 ML, LIDOCAINE HCL 2... PO (10:32)
[2023-07-13 10:33] LABS: Basophils Percent Auto 0.3 % (0.2-1.2); Eosinophils Absolute Auto 0.1 K/mm3 (0-0.3); Eosinophils Percent Auto 1.4 % (0-4.4); Hematocrit 39.8 % (37.0-47.0); Hemoglobin 12.9 g/dL (12.0-15.0); Immature Granulocyte Absolute 0.02 K/mm3 (0.00-0.031); Immature Granulocyte Percent A 0.3 % (0-0.5); Lymphocytes Absolute Auto 2.11 K/mm3 (0.9-3.2); Mean Corpuscular HGB Conc 32.4 g/dl (32-36); Mean Corpuscular Hemoglobin 27.3 pg (26-34); Mean Corpuscular Volume 84.3 fl (80-100); Mean Platelet Volume 10.5 fl (7.4-10.4); Monocytes Absolute Auto 0.5 K/mm3 (0.1-0.6); Monocytes Percent Auto 6.8 % (2.6-8.5); Neutrophils Absolute Auto 3.9 K/mm3 (1.3-6.7); Neutrophils Percent Auto 59.2 % (45.5-73.1); Platelet Count Result 236 k/mm3 (150-375); Red Blood Count 4.72 M/mm3 (4.2-5.4); Red Cell Distribution Width 13.9 % (11.5-14.5); White Blood Count 6.6 K/mm3 (4.5-10.0)
[2023-07-13] MEDS: KETOROLAC 30 MG/ML VIAL (*BKC) IV PUSH (10:33)
--- NOTE | 2023-07-13 10:40 | PC.NURSE ---
Per EDP ASA is DC.
[2023-07-13 10:44] LABS: Alanine Aminotransferase 38 U/L (6-35); Albumin Level 3.9 g/dL (3.5-5.1); Alkaline Phosphatase 72 U/L (38-126); Anion Gap 5 mmol/L (8-16); Aspartate Amino Transferase 34 U/L (14-36); Bilirubin,Total 0.6 mg/dL (0.2-1.3); Blood Urea Nitrogen 11 mg/dL (7-17); Calcium 8.9 mg/dL (8.4-10.2); Carbon Dioxide 28 mmol/L (22-30); Chloride 104 mmol/L (98-107); Estimated CRCL calculation 141 ml/min; Estimated Glomerular Filt Rate > 60; Glucose 111 mg/dL (65-110); Lipase 70 U/L (23-300); Potassium 3.8 mmol/L (3.4-5.0); Prothrombin Time 13.5 Seconds (11.1-14.7); Sodium 137 mmol/L (137-145)
[2023-07-13 10:45] LABS: Partial Thromboplastin Time 24.5 Seconds (22.3-36.8)
[2023-07-13 10:55] LABS: Troponin I < 0.012 ng/mL (0.000-0.034)
[2023-07-13 11:04] LABS: D Dimer 1.92 ug/mL (<0.48)
--- NOTE | 2023-07-13 11:14 | PC.NURSE ---
PT taken for CT at this time
--- NOTE | 2023-07-13 11:29 | PC.NURSE ---
Pt returned to room 1
[2023-07-13 11:34] VITALS: BP 119/62; PULSE 72; RESP 17; O2SAT 99
[2023-07-13 12:00] VITALS: PULSE 55; RESP 20; O2SAT 98
[2023-07-13] MEDS: IPRATROPIUM 0.5 MG/ALBUTEROL SULFATE 2.5 MG AMPUL.NEB 3 ML INHALATION (12:00)
[2023-07-13 12:07] VITALS: PULSE 75; RESP 20
[2023-07-13 12:49] VITALS: BP 119/64; PULSE 64; RESP 19; O2SAT 100
== END 2023-07-13 12:50 | disposition home or self-care (01) ==
PROVIDERS: Emergency Provider Emergency Medicine
DX: J40 Bronchitis, not specified as acute or chronic (principal); I10 Essential (primary) hypertension; Z86.718 Personal history of other venous thrombosis and embolism; Z87.442 Personal history of urinary calculi; Z86.711 Personal history of pulmonary embolism; Z90.49 Acquired absence of other specified parts of digestive tract; K76.0 Fatty (change of) liver, not elsewhere classified; R91.8 Other nonspecific abnormal finding of lung field; Z79.01 Long term (current) use of anticoagulants
CPT/HCPCS: 36415; 71046; 71275; 80053; 83690; 84484; 85025; 85380; 85610; 85730; 93005; 94640; 96374; 99284; A9270; J1885; Q9967

== ENCOUNTER 2024-01-24 09:20 | Emergency (ER) | payer OTHER, SELFPAY ==
--- NOTE | ~2024-01-24 | CT_ITS ---
EXAMINATION: CT brain wo con DATE: 01/24/2024 12:14 INDICATION: Worsening headache post fall TECHNIQUE: Computed tomography (CT) of the head was performed without intravenous contrast. Sagittal and coronal reconstructions were performed. The mA was adjusted according to patient size. Iterative reconstruction technique was employed. The dose-length product was 605.33 mGy-cm. COMPARISON: None FINDINGS: No fracture. No acute intracranial hemorrhage, acute infarction or abnormal extra axial fluid collect ion. Ventricles are normal and symmetric. No mass/mass effect. The orbits, paranasal sinuses and mast oid air cells are normal. IMPRESSION: 1. Normal head CT with no fracture or acute intracranial process. Reviewed, dictated and finalized at location A.
--- NOTE | ~2024-01-24 | XR_ITS ---
XR foot LT min 3V 01/24/2024 10:18 INDICATION: Left foot pain PROCEDURE: 4 views left foot COMPARISON: 03/13/2015 FINDINGS: Fracture, dislocation or subluxation is not identified. There are small degenerative calcan eal enthesophytes. Lisfranc joint intact. The soft tissues appear within normal limits. No foreign b odies are identified. IMPRESSION: 1: NO ACUTE BONE OR JOINT ABNORMALITY IDENTIFIED. Reviewed, dictated and finalized at location B.
--- NOTE | ~2024-01-24 | CT_ITS ---
CT cervical spine wo con Ordering provider: Katia Sawyer APRN History: . fall, back pain . Comparison: None. Technique: CT of the cervical spine was performed without contrast. Sagittal and coronal reformatted images were also obtained and reviewed. Automated exposure control and iterative reconstruction jake hnique were employed. The dose-length product was 589.98 mGy-cm. FINDINGS: VERTEBRAE: No subluxation or acute fracture. The occipital condyles are intact. DISC SPACES: Normal. PARASPINOUS SOFT TISSUES: Normal. IMPRESSION: No acute osseous abnormality cervical spine. Reviewed, dictated and finalized at location A.
--- NOTE | ~2024-01-24 | CT_ITS ---
EXAMINATION: CT lumbar spine wo con DATE: 01/24/2024 10:31 INDICATION: Low back pain post fall TECHNIQUE: Computed tomography (CT) of the lumbar spine was performed without intravenous contrast. A utomated exposure control and iterative reconstruction technique were employed. The dose-length produ ct was 1314.27 mGy-cm. COMPARISON: None FINDINGS: 6 degrees lumbar levocurvature. Sagittal alignment is normal. Chronic appearing likely physiologic mi ld anterior wedging at T11. No acute fracture. Lumbar vertebral body heights are normal. Lumbar disc heights are normal. There is mild disc height loss at T10-T11 and T11-T12. There is polyarticular fac et osteoarthritis, moderate severity bilaterally at T10-T11 and mild at the remaining more caudal tho racic and lumbar levels. No central canal or neural foraminal stenosis. Mild bilateral sacral iliac o steoarthritis. Cholecystectomy clips the gallbladder fossa. Bilateral adrenal glands, kidneys and ova elizabeth along the visualized portions of the liver, spleen, bowels and anteverted uterus are normal. Par avertebral soft tissues are unremarkable. IMPRESSION: 1. Minimal lumbar levocurvature with multilevel mild facet osteoarthritis. No acute osseous abnormali ty. 2. Mild lower thoracic spondylosis with chronic appearing mild likely physiologic anterior wedging at T11. Reviewed, dictated and finalized at location A. IMPRESSION: 1. Minimal lumbar levocurvature with multilevel mild facet osteoarthritis. No a cute osseous abnormality. 2. Mild lower thoracic spondylosis with chronic appearing mild likely physiolog ic anterior wedging at T11.
[2024-01-24 09:25] VITALS: BP 145/71; PULSE 88; RESP 16; TEMP 36.7; O2SAT 99
[2024-01-24 09:30] VITALS: BP 146/88; PULSE 82; RESP 20; O2SAT 99
[2024-01-24 09:46] VITALS: BP 159/78; PULSE 80; RESP 18; O2SAT 98
[2024-01-24 10:01] VITALS: BP 147/80; PULSE 70; RESP 18; O2SAT 98
--- NOTE | 2024-01-24 10:04 | ED.FALL ---
HPI - Fall General Chief Complaint: Fall Stated Complaint: fall Time Seen by Provider: 01/24/24 09:33 Source: patient Mode of arrival: ambulatory Limitations: no limitations History of Present Illness HPI Narrative: Patient is a 28-year-old female who presents to the ER after a fall. She reports she was walking down the steps then stepped onto a wooden ramp that was wet from the rain, which caused patient to slip. Patient reports her left lower extremity ended underneath her. She reports she hit her head but denies loss of consciousness. Patient endorses cervical, thoracic, and lumbar pain at this time. She reports she has a left broken foot twice before. In 2014 her fractured led to a DVT and PE which caused her to have an ICU stay. Patient denies chest pain, shortness of breath, weakness/tingling. Related Data Home Medications Medication Instructions Recorded Confirmed mecobalamin (vitamin B12) 1,000 1,000 mcg PO DAILY 09/26/23 11/19/23 mcg chewable tablet multivitamin with iron 1 tablet PO DAILY 09/26/23 11/19/23 Allergies Allergy/AdvReac Type Severity Reaction Status Date / Time erythromycin base Allergy Severe THROAT Verified 01/24/24 09:29 SWELLING, RASH sulfamethoxazole AdvReac Intermediate rash Verified 01/24/24 09:29 [From Bactrim] trimethoprim [From Bactrim] AdvReac Intermediate rash Verified 01/24/24 09:29 Review of Systems Review of Systems: All systems reviewed & are unremarkable except as noted in HPI and below PMFSH Past Medical History Medical History Anemia Anxiety B12 deficiency Chiari malformation type I Cough Deep vein thrombosis with pulmonary embolism Depression Elevated glucose Fatigue History of blood clots HTN (hypertension) Kidney stone Migraine with aura Migraines Morbid obesity with BMI of 45.0-49.9, adult PIH ( induced hypertension) Surgical History Surgical History H/O arthroscopic knee surgery H/O section History of tonsillectomy and adenoidectomy Hx laparoscopic cholecystectomy 08/09/21 Family History Family History Father Hypertension High cholesterol Grandparent Diabetes mellitus Mother Hypertension Diabetes mellitus Cerebrovascular accident Sibling Asthma Grandparent Heart disease Social History Social History Smoking status: Never smoker Second hand tobacco smoke exposure: No Alcohol intake: current Alcohol use details: 1/MONTH Substance use: never Substance use type: does not use Living arrangements: with family Occupation/Education: occupation 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 HEAD: Normocephalic, atraumatic. NECK: Supple. No adenopathy, no masses. Tenderness in cervical spine with palpation. RESPIRATORY: Airway patent, respirations nonlabored. Clear to auscultation bilaterally, no rales, rhonchi, wheezing. CARDIOVASCULAR: Regular rate and rhythm without murmurs, rubs, or gallops. Peripheral pulses 2+ and equal bilaterally. ABDOMINAL: Soft, nontender, nondistended, no hepatosplenomegaly. Normoactive BS. MUSCULOSKELETAL: Moves all extremities. Strength/ROM intact on all extremities except for gross deformities on LLE. LLE is swollen and has ecchymosis. Pt endorses mild numbness in LLE. SKIN: Warm, dry, pallor. No rashes. NEURO: A&O X3. Speech clear. Cranial nerves II-XII grossly intact. No ataxic movements. Endorses bilateral lumbar pain with straight leg test. PSYCHIATRIC: Appropriate mood, tearful. Normal interaction. Course Vital Signs Vi
[2024-01-24] MEDS: HYDROcodone/acetaminophen (*CRX) 5-325 MG TABLET 1 TAB PO ×2 (10:08→12:22)
[2024-01-24 12:23] VITALS: BP 128/60; PULSE 74; RESP 16; O2SAT 98
[2024-01-24 13:34] VITALS: BP 134/90; PULSE 82; RESP 16; TEMP 36.6; O2SAT 100
== END 2024-01-24 13:36 | disposition home or self-care (01) ==
PROVIDERS: Emergency Provider Registered Nurse; PCP Nurse Practitioner Family
DX: S93.402A Sprain of unspecified ligament of left ankle, initial encounter (principal); S39.92XA Unspecified injury of lower back, initial encounter; I10 Essential (primary) hypertension; E53.8 Deficiency of other specified B group vitamins; E66.01 Morbid (severe) obesity due to excess calories; Z68.42 Body mass index [BMI] 45.0-49.9, adult; G93.5 Compression of brain; F32.A Depression, unspecified; Z87.442 Personal history of urinary calculi; Z86.711 Personal history of pulmonary embolism; Z86.2 Personal history of diseases of the blood and blood-forming organs and certain disorders involving the immune mechanism; Z86.718 Personal history of other venous thrombosis and embolism; Z90.49 Acquired absence of other specified parts of digestive tract; Z79.899 Other long term (current) drug therapy; W10.9XXA Fall (on) (from) unspecified stairs and steps, initial encounter; M47.814 Spondylosis without myelopathy or radiculopathy, thoracic region; M47.816 Spondylosis without myelopathy or radiculopathy, lumbar region
CPT/HCPCS: 70450; 72125; 72131; 73630; 99284; A9270

== ENCOUNTER 2024-02-28 07:54 | Outpatient (CLI) | payer OTHER, SELFPAY ==
--- NOTE | ~2024-02-28 | MMUS_ITS ---
EXAMINATION: MM diagnostic [place] BI w jennifer, US breast RT limited HISTORY: Breast pain TECHNIQUE: 3-D tomosynthesis images of the breasts were performed and synthetic 2-D images were gener ated. CAD analysis was submitted and interpreted. High resolution limited right breast ultrasound was performed. COMPARISON: None BREAST PARENCHYMAL COMPOSITION:Not Dense. The breasts are almost entirely fatty FINDINGS: MAMMOGRAPHIC FINDINGS: No parenchymal abnormality of the breasts is identified. No suspicious mass lesion or distortion. No suspicious macrocalcifications. ULTRASOUND: Sonographic imaging of the right breast at the area of pain demonstrates no solid or cystic lesion. N o sonographic abnormality seen in the region scanned. IMPRESSION: No evidence for malignancy. No mammographic or sonographic correlate seen for the area of pain in th e right breast. BI-RADS Category 1: Negative Reviewed, dictated and finalized at location . IMPRESSION: No evidence for malignancy. No mammographic or sonographic correlate seen for the area of pain in the right breast. BI-RADS Category 1: Negative
--- NOTE | ~2024-02-28 | US_ITS ---
EXAMINATION: US pelvic complete w TV DATE: 02/28/2024 08:50 INDICATION: Pelvic pain. TECHNIQUE: Multiple transabdominal and transvaginal sonographic images of the pelvis were obtained. COMPARISON: CT abdomen and pelvis 07/17/2022 FINDINGS: TRANSABDOMINAL ULTRASOUND: The uterus measures 9.3 x 4.3 x 5.6 cm. There is physiologic free fluid in the pelvis. TRANSVAGINAL ULTRASOUND: The endometrial complex measures 4 mm in thickness. The right ovary measures 1.5 x 2.3 x 1.4 cm. The left ovary measures 1.6 x 2.5 x 1.7 cm. There is normal vascular flow in the ovaries. IMPRESSION: 1. Normal pelvis. Reviewed, dictated and finalized at location B. IMPRESSION: 1. Normal pelvis.
[2024-02-28 09:58] LABS: Hematocrit 40.5 % (37.0-47.0); Hemoglobin 13.5 g/dL (12.0-15.0); Mean Corpuscular HGB Conc 33.3 g/dl (32-36); Mean Corpuscular Hemoglobin 28.8 pg (26-34); Mean Corpuscular Volume 86.4 fl (80-100); Mean Platelet Volume 10.4 fl (7.4-10.4); Platelet Count Result 244 k/mm3 (150-375); Red Blood Count 4.69 M/mm3 (4.2-5.4); Red Cell Distribution Width 13.5 % (11.5-14.5); White Blood Count 6.3 K/mm3 (4.5-10.0)
[2024-02-28 10:11] LABS: Hemoglobin A1C 5.2 % (<5.7)
[2024-02-28 10:46] LABS: Free T4 Free Thyroxine 1.23 ng/mL (0.78-2.19)
[2024-03-01 10:44] LABS: Insulin Level Total 15.6 uIU/mL
[2024-03-02 12:07] LABS: DHEA-Sulfate 58 mcg/dL (19-237); FSH 6.5 mIU/mL; LH 3.4 mIU/mL; Prolactin 9.2 ng/mL
[2024-03-04 09:38] LABS: Testosterone Total 22 ng/dL (2-45)
== END 2024-02-28 07:55 | disposition home or self-care (01) ==
PROVIDERS: Nurse Practitioner; PCP Nurse Practitioner Family; Visit Provider Obstetrics & Gynecology Gynecology
DX: N64.4 Mastodynia (principal); N92.1 Excessive and frequent menstruation with irregular cycle; N64.59 Other signs and symptoms in breast; R10.2 Pelvic and perineal pain
CPT/HCPCS: 36415; 76642; 76830; 76856; 77062; 77066; 82607; 82627; 82670; 83001; 83002; 83036; 83498; 83525; 84146; 84403; 84439; 84443; 85027; G0279